=== PATIENT | male | born 1980 | race African-American/Black ===

== ENCOUNTER 2018-08-11 08:48 | Emergency (ER) | payer MEDICAID ==
[~2018-08-11] VITALS: Ht 180.3 cm; Wt 83.9 kg
[2018-08-11 08:52] VITALS: BP 100/57
--- NOTE | 2018-08-11 08:56 | NUR ---
ED Nurse Note: brought in by pt's from home due to lupus flare up x 3 days. Also c/o fever, 101.2F at bedside. Per pt, he took 500mg of tylenol at home around 0800. Butterfly-shaped rash seen across the cheeks and bridge of the nose. Denies CP nor SOB at this time.
[2018-08-11] MEDS ORDERED: FOLIC ACID1 MG ORAL (09:03)
[2018-08-11] MEDS ORDERED: CARVEDILOL6.25 MG ORAL (09:03)
[2018-08-11] MEDS ORDERED: NALOXONE H0.4 MG/12 IJ (09:03)
[2018-08-11] MEDS ORDERED: ZOFRAN4 M3 ORAL (09:03)
[2018-08-11] MEDS ORDERED: HYDROXYCHLOROQ200 M1 PO (09:03)
[2018-08-11] MEDS ORDERED: PREDNISONE10 MG ORAL (09:03)
[2018-08-11] MEDS ORDERED: ASPIR 8181 MG ORAL (09:03)
[2018-08-11] MEDS ORDERED: TYLENOL EXTRA500 MG ORAL (09:03)
[2018-08-11] MEDS ORDERED: MYCOPHENOLATE500 MG PO (09:03)
[2018-08-11] MEDS ORDERED: CLOPIDOGREL75 MG ORAL (09:03)
[2018-08-11] MEDS ORDERED: ATORVASTATIN CA40 MG ORAL (09:03)
[2018-08-11] MEDS ORDERED: Solu-MEDROL 125mg Inj IVP ONE (09:15)
[2018-08-11] MEDS ORDERED: HYDROcodone/Acetamin 10/325 tab ORAL ONE (09:15)
--- NOTE | 2018-08-11 09:18 | Emergency Room Report ---
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 seeing on August 22 Denies any chest pain denies any sore throat denies any cough Patient has diffuse body ache However denies any neck pain or photophobia he also feels that the rash around the facial area has become more pronounced Allergies: Coded Allergies: No Known Allergies (Unverified , 08/11/18) Patient History Past Medical History: see triage record Pertinent Family History: none Reviewed Nursing Documentation: PMH: Agreed; PSxH: Agreed Nursing Documentation-PMH Past Medical History: No History, Except For Hx Cardiac Problems: Yes - dental caries, DVT, lupus, PE, [place] Hx Diabetes: Yes - pre Hx Dialysis: No - renal failure Review of Systems All Other Systems: negative except mentioned in HPI Physical Exam Vital Signs Date Time Temp Pulse Resp B/P (MAP) Pulse Ox O2 Delivery O2 Flow Rate FiO2 08/11/18 08:50 101.1 91 20 100/57 100 Room Air Sp02 EP Interpretation: reviewed, normal General Appearance: well appearing, no apparent distress Head: normocephalic, atraumatic Eyes: bilateral eye PERRL, bilateral eye EOMI ENT: normal pharynx Neck: full range of motion, supple Respiratory: lungs clear Cardiovascular #1: regular rate, rhythm Gastrointestinal: non tender, soft Musculoskeletal: normal inspection Neurologic: alert, oriented x3, responsive Psychiatric: mood/affect normal Skin: other - Patient has a Mal or rash involving the nasal bridge and upper maxillary Lymphatic: no adenopathy Medical Decision Making Diagnostic Impression: Primary Impression: Fever 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1 % (11.6-14.8) Platelet Count 217 K/UL (150-450) Mean Platelet Volume 6.8 FL (6.5-10.1) Neutrophils (%) (Auto) 76.6 % (45.0-75.0) Lymphocytes (%) (Auto) 11.9 % (20.0-45.0) Monocytes (%) (Auto) 10.8 % (1.0-10.0) Eosinophils (%) (Auto) 0.4 % (0.0-3.0) Basophils (%) (Auto) 0.4 % (0.0-2.0) Urine Color Pale yellow Urine Appearance Clear Urine pH 8 (4.5-8.0) Urine Specific [place] 1.010 (1.005-1.035) Urine Protein Negative (NEGATIVE) Urine Glucose (UA) Negative (NEGATIVE) Urine Ketones Negative (NEGATIVE) Urine Blood Negative (NEGATIVE) Urine Nitrite Negative (NEGATIVE) Urine Bilirubin Negative (NEGATIVE) Urine Urobilinogen Normal MG/DL (0.0-1.0) Urine Leukocyte Esterase Negative (NEGATIVE) Sodium Level 138 MMOL/L (136-145) Potassium Level 3.8 MMOL/L (3.5-5.1) Chloride Level 102 MMOL/L (98-107) Carbon Dioxide Level 30 MMOL/L (21-32) Anion Gap 6 mmol/L (5-15) Blood Urea Nitrogen 11 mg/dL (7-18) Creatinine 1.3 MG/DL (0.55-1.30) Estimat Glomerular Filtration Rate > 60 mL/min (>60) Glucose Level 100 MG/DL (74-106) Calcium Level 8.4 MG/DL (8.5-10.1) Total Bilirubin 0.3 MG/DL (0.2-1.0) Aspartate Amino Transf (AST/SGOT) 16 U/L (15-37) Alanine Aminotransferase (ALT/SGPT) 20 U/L (12-78) Alkaline Phosphatase 71 U/L (46-116) Total Protein 6.6 G/DL (6.4-8.2) Albumin 3.1 G/DL (3.4-5.0) Globulin 3.5 g/dL Albumin/Globulin Ratio 0.9 (1.0-2.7) Rhythm Strip Diag. Results EP Interpretation: yes Rate: 66 Rhythm: NSR, no PVC's, no ectopy Last Vital Signs Date Time Temp Pulse Resp B/P (MAP) Pulse Ox O2 Delivery O2 Flow Rate FiO2 08/11/18 08:53 91 20 Room Air 08/11/18 08:52 101.2 100/57 100 Status: improved Disposition: HOME, SELF-CARE Condition: Improved Scripts Tramadol Hcl* (ULTRAM*) 50 Mg Tablet 50 MG ORAL Q6H PRN for For Pain, #10 TAB 0 Refills Prov: Susy Howard DO 08/11/18 Ibuprofen* (MOTRIN*) 600 Mg Tablet 600 MG ORAL Q8HR PRN for For Pain, #20 TAB 0 Refills Prov: Susy Howard DO 08/11/18 Methylprednisolone (Methylprednisolone*) 4MG Dspk 4 MG ORAL DIRECTED for 6 Days, #21 EA 0 Refills Day 1: Two tablets before breakfast, one after lunch, one after dinner, and two at bedtime. If started late in the day, take all six tablets at once or divide into two or three doses, unless otherwise directed by prescriber. Day 2: One tablet before breakfast, one after lunch, one after dinner, and two at bedtime Day 3: One tablet before breakfast, one after lunch, one after dinner, and one at bedtime Day 4: One tablet before breakfast, one after lunch, and one at bedtime Day 5: One tablet before breakfast and one at bedtime Day 6: One tablet before breakfast Prov: Susy Howard DO 08/11/18 Referrals: NON PHYSICIAN (PCP) Additional Instructions: Patient is provided with the discharge instructions notified to follow up with primary doctor in the next 2-3 days otherwise return to the er with any worsening symptoms. Please note that this report is being documented using DRAGON technology. This can lead to erroneous entry secondary to incorrect interpretation by the dictating instrument. Susy Howard DO Aug 11, 2018 09:18
--- NOTE | 2018-08-11 09:30 | NUR ---
ED Nurse Note: urine and blood sepcimens collected and sent down to the lab. All meds are given. No s/s of distress at this time.
[2018-08-11 09:35] LABS: BASOPHILS % (AUTO) 0.4 % (0.0-2.0); EOSINOPHILS % (AUTO) 0.4 % (0.0-3.0); HEMATOCRIT 31.8 % (42.0-52.0); HEMOGLOBIN 10.5 G/DL (14.2-18.0); LYMPHOCYTES % (AUTO) 11.9 % (20.0-45.0); MEAN CORPUSCULAR VOLUME 86 FL (80-99); MONOCYTES % (AUTO) 10.8 % (1.0-10.0); NEUTROPHILS % (AUTO) 76.6 % (45.0-75.0); PLATELET COUNT 217 K/UL (150-450); RED BLOOD COUNT 3.72 M/UL (4.70-6.10); RED CELL DISTRIBUTION WIDTH 13.1 % (11.6-14.8); WHITE BLOOD COUNT 5.4 K/UL (4.8-10.8)
[2018-08-11 10:00] LABS: ANION GAP 6 mmol/L (5-15); BLOOD UREA NITROGEN 11 mg/dL (7-18); CALCIUM 8.4 MG/DL (8.5-10.1); CARBON DIOXIDE 30 MMOL/L (21-32); CHLORIDE 102 MMOL/L (98-107); CREATININE 1.3 MG/DL (0.55-1.30); POTASSIUM 3.8 MMOL/L (3.5-5.1); SODIUM 138 MMOL/L (136-145)
[2018-08-11 10:04] LABS: ALANINE AMINOTRANSFERASE 20 U/L (12-78); ALBUMIN 3.1 G/DL (3.4-5.0); ALBUMIN/GLOBULIN RATIO 0.9 (1.0-2.7); ALKALINE PHOSPHATASE 71 U/L (46-116); ASPARTATE AMINO TRANSFERASE 16 U/L (15-37); BILIRUBIN,TOTAL 0.3 MG/DL (0.2-1.0)
[2018-08-11 10:16] LABS: APPEARANCE,URINE CLEAR; BILIRUBIN, URINE NEGATIVE (NEGATIVE); COLOR,URINE PALE YELLOW; GLUCOSE, URINE (UA) NEGATIVE (NEGATIVE); NITRITE,URINE NEGATIVE (NEGATIVE); UROBILINOGEN,URINE NORMAL MG/DL (0.0-1.0)
[2018-08-11 10:25] LABS: KETONES,URINE NEGATIVE (NEGATIVE); LEUKOCYTE ESTERASE ,URINE NEGATIVE (NEGATIVE); PH,URINE 8 (4.5-8.0); PROTEIN,URINE NEGATIVE (NEGATIVE)
[2018-08-11] MEDS ORDERED: IBUPROFEN600 MG ORAL (10:32)
[2018-08-11] MEDS ORDERED: MEDROL DOSEPAK4 MG ORAL (10:32)
[2018-08-11] MEDS ORDERED: TRAMADOL HCL50 MG ORAL (10:39)
[2018-08-11 10:44] VITALS: BP 108/49
[2018-08-11 10:45] VITALS: BP 108/49
--- NOTE | 2018-08-11 10:46 | NUR ---
ED Nurse Note: Pt cleared by health care Provider for discharge. DC instructions/prescription was given and explained to pt and verbalized understanding of teachings. All medical deviecs such as ID band and IV removed. Pt is AAO x4, ambulatory and left with all personal belongings.
== END 2018-08-11 10:47 | disposition home or self-care (01) ==
LOC: EMR 09:04
DX: R50.9 Fever, unspecified (principal); M32.9 Systemic lupus erythematosus, unspecified; N05.8 Unspecified nephritic syndrome with other morphologic changes; R73.03 Prediabetes; I25.2 Old myocardial infarction; Z86.711 Personal history of pulmonary embolism; Z86.718 Personal history of other venous thrombosis and embolism; R21 Rash and other nonspecific skin eruption; N19 Unspecified kidney failure
CPT/HCPCS: 36415; 80053; 81003; 85025; 93005; 96361; 96374; 99284; J2930

== ENCOUNTER 2018-09-18 23:05 | Emergency (ER) | payer MEDICAID ==
[~2018-09-18] VITALS: Ht 180.3 cm; Wt 81.6 kg
[~2018-09-18 23:05] MED LIST: ASPIR 8181 MG ORAL; ATORVASTATIN CA40 MG ORAL; CARVEDILOL6.25 MG ORAL; CLOPIDOGREL75 MG ORAL; FOLIC ACID1 MG ORAL; HYDROXYCHLOROQ200 M1 PO; IBUPROFEN600 MG ORAL; MEDROL DOSEPAK4 MG ORAL; MYCOPHENOLATE500 MG PO; NALOXONE H0.4 MG/12 IJ; PREDNISONE10 MG ORAL; TRAMADOL HCL50 MG ORAL; TYLENOL EXTRA500 MG ORAL; ZOFRAN4 M3 ORAL
[2018-09-18 23:21] VITALS: BP 128/76
--- NOTE | 2018-09-18 23:21 | NUR ---
ED Nurse Note: Pt has Lupus Hx, and current joints pain. Pt needs to refill his meds. Pt is AO x 4times, VSS, on room air no distress, Pt is on wheel chair. SUNITA seen Pt at bedside.
[2018-09-18] MEDS ORDERED: HYDROXYCHLOROQ200 M1 PO (23:38)
[2018-09-18] MEDS ORDERED: PREDNISONE2.5 MG ORAL (23:38)
[2018-09-18] MEDS ORDERED: COREG6.25 MG ORAL (23:38)
[2018-09-18] MEDS ORDERED: PLAVIX75 MG ORAL (23:38)
--- NOTE | 2018-09-18 23:40 | Emergency Room Report ---
History of Present Illness General Chief Complaint: Medication Refill Source: Patient Present Illness HPI Patient is a 37-year-old male who presented emergency department for medication refill. Patient reports having prior history of lupus. He states that he had run out of his medications and [facility]. Patient states that he had been having increased joint pain. He denies any acute complaints at this time. He states he has prior history of neuropathy and has been using a wheelchair. He reports having pain to multiple joints. He denies any fever. Allergies: Coded Allergies: No Known Allergies (Unverified , 08/11/18) Patient History Reviewed Nursing Documentation: PMH: Agreed; PSxH: Agreed Nursing Documentation-PMH Hx Cardiac Problems: Yes - dental caries, DVT, lupus, PE, [place] Hx Diabetes: Yes - pre Hx Dialysis: No - renal failure Review of Systems All Other Systems: negative except mentioned in HPI Physical Exam Vital Signs Date Time Temp Pulse Resp B/P (MAP) Pulse Ox O2 Delivery O2 Flow Rate FiO2 09/18/18 23:21 98.4 68 18 98 Room Air General Appearance: no apparent distress, alert, GCS 15, Chronically Ill Head: normocephalic, atraumatic Eyes: bilateral eye PERRL ENT: hearing grossly normal, normal voice Neck: full range of motion, supple Respiratory: lungs clear, no respiratory distress, speaking full sentences Cardiovascular #1: normal peripheral pulses, regular rate, rhythm Gastrointestinal: normal inspection Musculoskeletal: normal inspection Neurologic: normal inspection, alert, oriented x3, responsive, normal gait Psychiatric: mood/affect normal Skin: other - Rash. Medical Decision Making Diagnostic Impression: Primary Impression: Medication refill ER Course Patient presented for medication refill. Patient denies any current complaints. Patient was given refills of several of his medications. He was advised to follow-up with his primary care physician for further evaluation and further refills of his medications. He is advised to return if he had any other concerns. Last Vital Signs Date Time Temp Pulse Resp B/P (MAP) Pulse Ox O2 Delivery O2 Flow Rate FiO2 09/18/18 23:21 98.4 68 18 98 Room Air Status: improved Disposition: HOME, SELF-CARE Condition: Stable Scripts Clopidogrel Bisulfate* (PLAVIX*) 75 Mg Tablet 75 MG ORAL DAILY, #14 TAB Prov: William Santos MD 09/18/18 Prednisone* (PREDNISONE*) 2.5 Mg Tablet 5 MG ORAL DAILY, #14 TAB 0 Refills Prov: William Santos MD 09/18/18 Carvedilol (Coreg) 6.25 Mg Tablet 6.25 MG ORAL EVERY 12 HOURS, #30 TAB Prov: William Santos MD 09/18/18 Hydroxychloroquine Sulfate (HYDROXYCHLOROQUINE SULFATE) 200 Mg Tablet 200 MG PO DAILY for 14 Days, TAB Prov: William Santos MD 09/18/18 Patient Instructions: Medicine Refill at the Emergency Department William Santos MD September 18, 2018 23:40
--- NOTE | 2018-09-18 23:50 | NUR ---
ER DISCHARGE NOTE: Patient is cleared to be discharged per ERMD, pt is aox4, on room air, with stable vital signs. pt was given dc and prescription instructions, pt was able to verbalize understanding, pt id band and iv site removed without complications. pt is able to ambulate with steady gait. pt took all belongings.
[2018-09-19 03:42] VITALS: BP 128/76
== END 2018-09-19 03:47 | disposition home or self-care (01) ==
LOC: EMR 23:50
DX: R52 Pain, unspecified (principal); Z76.0 Encounter for issue of repeat prescription; R73.03 Prediabetes; I25.2 Old myocardial infarction; Z86.711 Personal history of pulmonary embolism; Z86.718 Personal history of other venous thrombosis and embolism; N19 Unspecified kidney failure; G62.9 Polyneuropathy, unspecified
CPT/HCPCS: 99282

== ENCOUNTER 2018-11-11 19:05 | Emergency (ER) | payer MEDICAID, OTHER ==
[~2018-11-11] VITALS: Ht 182.9 cm; Wt 77.1 kg
[~2018-11-11 19:05] MED LIST changes: +COREG6.25 MG ORAL; +PLAVIX75 MG ORAL; +PREDNISONE2.5 MG ORAL
--- NOTE | 2018-11-11 19:38 | Emergency Room Report ---
History of Present Illness General Chief Complaint: Medication Refill Source: Patient Present Illness HPI Male with history of lupus and DVT here requesting a medication refill. Patient reports that he was in intermediate and just got out of intermediate and has not had time to establish a new primary care provider. Patient last took his Plavix, hydroxychloroquine, and prednisone 4 days ago. Denies any calf tenderness, leg swelling or pain, chest pain, shortness of breath, palpitation. Patient was previously here a few months ago for medication refill of same diagnosis. Patient is also requesting multiple medication refill for his hyperlipidemia, hypertension, kidney transplant, and also complaining of a pruritic rash that his arms and legs when he was in intermediate. Reporting that pruritus is worse and at night denying any pain. Has fever and chills, exposure to new allergens. Allergies: Coded Allergies: No Known Allergies (Unverified , 08/11/18) Patient History Past Medical History: see triage record Past Surgical History: unable to obtain Pertinent Family History: none Immunizations: UTD Reviewed Nursing Documentation: PMH: Agreed; PSxH: Agreed Nursing Documentation-PMH Past Medical History: No History, Except For Hx Cardiac Problems: Yes - dental caries, DVT, lupus, PE, [place] Hx Diabetes: Yes - pre Hx Dialysis: No - renal failure Review of Systems All Other Systems: negative except mentioned in HPI Physical Exam Vital Signs Date Time Temp Pulse Resp B/P (MAP) Pulse Ox O2 Delivery O2 Flow Rate FiO2 11/11/18 19:08 98.4 90 14 110/62 (78) 98 Room Air Sp02 EP Interpretation: reviewed, normal General Appearance: normal inspection, well appearing, no apparent distress, alert, GCS 15 Head: normocephalic, atraumatic Eyes: bilateral eye normal inspection, bilateral eye PERRL ENT: normal ENT inspection, hearing grossly normal, normal pharynx, no angioedema, TMs + canals normal Neck: normal inspection, full range of motion, supple Respiratory: normal inspection, chest non-tender, lungs clear, normal breath sounds, no rhonchi, no respiratory distress, no retraction Cardiovascular #1: normal inspection, normal peripheral pulses, regular rate, rhythm, no edema, no gallop, no murmur Gastrointestinal: normal inspection, non tender, soft Genitourinary: no CVA tenderness Musculoskeletal: normal inspection, back normal, non-tender, no calf tenderness Neurologic: normal inspection, alert, oriented x3 Psychiatric: normal inspection, judgement/insight normal Skin: palpation normal, warm/dry, normal turgor Lymphatic: normal inspection, no adenopathy Medical Decision Making PA Attestation All diagnoses and treatment plans were reviewed and discussed with my supervising physician Dr. Richard Diagnostic Impression: Primary Impression: Encounter for medication refill Additional Impressions: Eczema Scabies ER Course Male with history of lupus and DVT here requesting a medication refill. Patient reports that he was in intermediate and just got out of intermediate and has not had time to establish a new primary care provider. Patient last took his Plavix, hydroxychloroquine, and prednisone 4 days ago. Denies any calf tenderness, leg swelling or pain, chest pain, shortness of breath, palpitation. Patient was previously here a few months ago for medication refill of same diagnosis. Patient is also requesting multiple medication refill for his hyperlipidemia, hypertension, kidney transplant, and also complaining of a pruritic rash that his arms and legs when he was in intermediate. Reporting that pruritus is worse and at night denying any pain. Has fever and chills, exposure to new allergens. Ddx considered but are not limited to: Eczema, scabies, lice, Vital signs: are WNL, pt. is afebrile H&PE are most consistent with: Eczema, scabies, medication refill ORDERS: Hydrocortisone cream, permethrin ED INTERVENTIONS: None required at this time. DISCHARGE: At this time pt. is stable for d/c to home. Will provide printed patient care instructions, and any necessary prescriptions. Care plan and follow up instructions have been discussed with the patient prior to discharge. I gave him a supply of the medications patient requested and highly advised patient to follow-up with a primary care provider for further refill of medication at this time patient does not have any calf tenderness and has normal physical exam despite not taking Plavix or aspirin for the past 4 days. I advised the patient return to the emergency room with chest pain, shortness of breath, leg swelling no calf tenderness. Last Vital Signs Date Time Temp Pulse Resp B/P (MAP) Pulse Ox O2 Delivery O2 Flow Rate FiO2 11/11/18 19:08 98.4 90 14 110/62 (78) 98 Room Air Disposition: HOME, SELF-CARE Condition: Stable Scripts Permethrin* (ELIMITE*) 60 Gm Cream..g. 1 APPLIC TOPIC ONCE, #60 GM 0 Refills Apply cream from head to toe; leave on for 8-14 hours before washing off with water; may reapply in 1 week if live mites appear. Prov: Ankit Finch 11/11/18 Hydrocortisone/Aloe Vera 1%* (HYDROCORTISONE-ALOE 1% CREAM*) Y Cr 1 APPLIC TOPIC Q6H PRN for Itching, #30 GM Prov: Ankit Finch 11/11/18 Folic Acid* (FOLIC ACID*) 1 Mg Tablet 1 MG ORAL DAILY for 30 Days, #30 TAB Prov: Ankit Finch 11/11/18 Carvedilol* (CARVEDILOL*) 6.25 Mg Tablet 6.25 MG ORAL EVERY 12 HOURS for 30 Days, #60 TAB Prov: Ankit Finch 11/11/18 Clopidogrel Bisulfate* (PLAVIX*) 75 Mg Tablet 75 MG ORAL DAILY for 30 Days, #30 TAB Prov: Ankit Finch [place] 11/11/18 Aspirin* (ASPIRIN*) 81 Mg Tab.chew 81 MG ORAL DAILY for 30 Days, #30 TAB Prov: Ankit Finch 11/11/18 Hydroxychloroquine Sulfate (HYDROXYCHLOROQUINE SULFATE) 200 Mg Tablet 200 MG PO DAILY for 30 Days, #30 TAB Prov: Ankit Finch [place] 11/11/18 Prednisone* (PREDNISONE*) 2.5 Mg Tablet 2.5 MG ORAL BID for 30 Days, #60 TAB 0 Refills Prov: Ankit Finch 11/11/18 Atorvastatin Calcium* (LIPITOR*) 80 Mg Tablet 80 MG ORAL BEDTIME for 30 Days, #30 TAB Prov: Ankit Finch 11/11/18 Mycophenolate Mofetil (MYCOPHENOLATE MOFETIL) 500 Mg Tablet 500 MG PO QID for 30 Days, #120 TAB Prov: Ankit Finch 11/11/18 Patient Instructions: Medicine Refill at the Emergency Department, Scabies, Pediatric Additional Instructions: See primary doctor, manufacturing chief engineer, and metalizer for further medication refill Ankit Finch Nov 11, 2018 19:38
[2018-11-11] MEDS ORDERED: PLAVIX75 MG ORAL (19:44)
[2018-11-11] MEDS ORDERED: CARVEDILOL6.25 MG ORAL (19:44)
[2018-11-11] MEDS ORDERED: FOLIC ACID1 MG ORAL (19:44)
[2018-11-11] MEDS ORDERED: HYDROXYCHLOROQ200 M1 PO (19:44)
[2018-11-11] MEDS ORDERED: ATORVASTATIN CA80 MG ORAL (19:44)
[2018-11-11] MEDS ORDERED: HYDROCORTISONE-30 GM TOPIC (19:44)
[2018-11-11] MEDS ORDERED: PREDNISONE2.5 MG ORAL (19:44)
[2018-11-11] MEDS ORDERED: ASPIRIN81 MG ORAL (19:44)
[2018-11-11] MEDS ORDERED: MYCOPHENOLATE500 MG PO (19:44)
[2018-11-11] MEDS ORDERED: PERMETHRIN60 GM TOPIC (19:44)
--- NOTE | 2018-11-11 19:59 | NUR ---
ED Nurse Note: RECIEVED PT ON [facility] AWAKE, ALERT AND ORIENTED X 4, PT HERE WITH C/O NEEDING MEDICATION REFILLS FOR CHRONIC MEDS FOR EXZEMA AND SCABIES, PT HAS NOTED RASH ON ENTIRE BODY INCLUDING FACE AND EXTREMITIES, PT DENIES ANY OTHER COMPLAINTS OR NEEDS, PT HAS BEEN SEEN BY MD AND BEING DISCHARGED TO HOME, GIVEN PRESCRIPTIONS X 8 WITH F/U INFO AND AFTER CARE INSTRUCTIONS, NAD NOTD DURING PT D/C TO HOME.
[2018-11-11 20:01] VITALS: BP 110/62
[2018-11-11 20:04] VITALS: BP 110/62
[2018-11-12] MEDS ORDERED: MYCOPHENOLATE500 MG PO (23:39)
[2018-11-12] MEDS ORDERED: HYDROCORTISONE-30 GM TOPIC (23:39)
[2018-11-12] MEDS ORDERED: FOLIC ACID1 MG ORAL (23:39)
[2018-11-12] MEDS ORDERED: ASPIRIN81 MG ORAL (23:39)
[2018-11-12] MEDS ORDERED: HYDROXYCHLOROQ200 M1 PO (23:39)
[2018-11-12] MEDS ORDERED: PREDNISONE2.5 MG ORAL (23:39)
[2018-11-12] MEDS ORDERED: PLAVIX75 MG ORAL (23:39)
[2018-11-12] MEDS ORDERED: CARVEDILOL6.25 MG ORAL (23:39)
[2018-11-12] MEDS ORDERED: ATORVASTATIN CA80 MG ORAL (23:39)
== END 2018-11-11 20:05 | disposition home or self-care (01) ==
LOC: EMR 20:05
DX: L30.9 Dermatitis, unspecified (principal); B86 Scabies; Z86.718 Personal history of other venous thrombosis and embolism; R73.03 Prediabetes; I25.2 Old myocardial infarction; Z86.711 Personal history of pulmonary embolism; E78.5 Hyperlipidemia, unspecified; Z94.0 Kidney transplant status
CPT/HCPCS: 99283

== ENCOUNTER 2018-11-12 20:59 | Emergency (ER) | payer OTHER ==
[~2018-11-12] VITALS: Ht 182.9 cm; Wt 77.1 kg
[~2018-11-12 20:59] MED LIST changes: +ASPIRIN81 MG ORAL; +ATORVASTATIN CA80 MG ORAL; +HYDROCORTISONE-30 GM TOPIC; +PERMETHRIN60 GM TOPIC
--- NOTE | 2018-11-12 21:20 | NUR ---
ED Nurse Note: Patient walked in to ER c/o chest discomphort, stated that he needs meds refill. AAO x4, VSS at this time, skin is dry war to touch. ERMD at bed side. EKG done, pt has sinus rythm.
[2018-11-12 21:24] VITALS: BP 115/64
[2018-11-12 21:52] LABS: HEMOGLOBIN 12.9 G/DL (14.2-18.0); MEAN CORPUSCULAR VOLUME 83 FL (80-99); PLATELET COUNT 139 K/UL (150-450); RED BLOOD COUNT 4.67 M/UL (4.70-6.10); RED CELL DISTRIBUTION WIDTH 12.2 % (11.6-14.8)
[2018-11-12 21:56] LABS: ANION GAP 6 mmol/L (5-15); BLOOD UREA NITROGEN 13 mg/dL (7-18); CARBON DIOXIDE 31 MMOL/L (21-32); CHLORIDE 104 MMOL/L (98-107); CREATININE 1.4 MG/DL (0.55-1.30); POTASSIUM 3.5 MMOL/L (3.5-5.1); SODIUM 141 MMOL/L (136-145)
[2018-11-12 22:12] LABS: ALANINE AMINOTRANSFERASE 62 U/L (12-78); ALBUMIN 4.3 G/DL (3.4-5.0); ALBUMIN/GLOBULIN RATIO 1.2 (1.0-2.7); ALKALINE PHOSPHATASE 94 U/L (46-116); ASPARTATE AMINO TRANSFERASE 38 U/L (15-37); BILIRUBIN,TOTAL 0.4 MG/DL (0.2-1.0); CKMB < 0.5 NG/ML (0.0-3.6); CREATINE KINASE 220 U/L (26-308)
[2018-11-12] MEDS ORDERED: traMADol 50mg tab ORAL ONE (23:15)
[2018-11-12] MEDS ORDERED: MYCOPHENOLATE500 MG PO (23:39)
[2018-11-12] MEDS ORDERED: CARVEDILOL6.25 MG ORAL (23:39)
[2018-11-12] MEDS ORDERED: FOLIC ACID1 MG ORAL (23:39)
[2018-11-12] MEDS ORDERED: PLAVIX75 MG ORAL (23:39)
[2018-11-12] MEDS ORDERED: HYDROXYCHLOROQ200 M1 PO (23:39)
[2018-11-12] MEDS ORDERED: HYDROCORTISONE-30 GM TOPIC (23:39)
[2018-11-12] MEDS ORDERED: ATORVASTATIN CA80 MG ORAL (23:39)
[2018-11-12] MEDS ORDERED: ASPIRIN81 MG ORAL (23:39)
[2018-11-12] MEDS ORDERED: PREDNISONE2.5 MG ORAL (23:39)
[2018-11-12 23:52] VITALS: BP 115/64
--- NOTE | 2018-11-13 00:49 | Emergency Room Report ---
History of Present Illness General Chief Complaint: Pain Source: Patient Present Illness HPI 37-year-old male presents ED for evaluation. States that he is here for generalized pain. History of lupus. States he was seen here yesterday for refill of his medications. Had several medications refilled as he had recently been released from snf. States that he was unable to fill his medications as they were not completed properly. Is here to get his medications filled. Also complaining of generalized pain. Pain to his general body as well as his chest. Dull, 8 out of 10, nonradiating. Denies shortness of breath. No other aggravating or relieving factors. Denies any other associated symptoms Allergies: Coded Allergies: No Known Allergies (Unverified , 08/11/18) Patient History Past Medical History: DM, DE, other - lupus Past Surgical History: none Pertinent Family History: none Social History: Denies: smoking, alcohol use, drug use Immunizations: UTD Reviewed Nursing Documentation: PMH: Agreed; PSxH: Agreed Nursing Documentation-PMH Past Medical History: No History, Except For Hx Cardiac Problems: Yes - dental caries, DVT, lupus, PE, DE Hx Diabetes: Yes - pre Hx Dialysis: No - renal failure Review of Systems All Other Systems: negative except mentioned in HPI Physical Exam Vital Signs Date Time Temp Pulse Resp B/P (MAP) Pulse Ox O2 Delivery O2 Flow Rate FiO2 11/12/18 21:04 98.1 70 14 115/64 (81) 99 Room Air Sp02 EP Interpretation: reviewed, normal General Appearance: no apparent distress, alert, GCS 15, non-toxic Head: normocephalic, atraumatic Eyes: bilateral eye normal inspection, bilateral eye PERRL ENT: hearing grossly normal, normal pharynx, no angioedema, normal voice Neck: full range of motion, supple/symm/no masses Respiratory: chest non-tender, lungs clear, normal breath sounds, speaking full sentences Cardiovascular #1: regular rate, rhythm, no edema Cardiovascular #2: 2+ carotid (R), 2+ carotid (L), 2+ radial (R), 2+ radial (L) , 2+ dorsalis pedis (R), 2+ dorsalis pedis (L) Gastrointestinal: normal bowel sounds, non tender, soft, non-distended, no guarding, no rebound Rectal: deferred Genitourinary: normal inspection, no CVA tenderness Musculoskeletal: back normal, gait/station normal, normal range of motion, non- tender Neurologic: alert, oriented x3, responsive, motor strength/tone normal, sensory intact, speech normal Psychiatric: judgement/insight normal, memory normal, mood/affect normal, no suicidal/homicidal ideation Reflexes: 3+ bicep (R), 3+ bicep (L), 3+ tricep (R), 3+ tricep (L), 3+ knee (R) , 3+ knee (L) Skin: other - malar rash Lymphatic: no adenopathy Medical Decision Making Diagnostic Impression: Primary Impression: Medication refill Additional Impression: 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 h/o lupus. Differential diagnoses include: Rib fracture, DE/unstable angina, contusion, muscle strain Clinical course Patient placed on stretcher. After initial history and physical I ordered labs , EKG, chest x-ray. labs reviewed- all electrolytes normal, troponins negative, no leukocytosis, hemoglobin/hematocrit stable EKG - NSR, no acute ischemic changes interpreted by me Chest x-ray-no cardiomegaly, no rib fracture, no pneumothorax, no acute process discussed findings with patient. I believe his pain is likely related to lupus and not cardiac. Patient due for new PMD. Will provide referrals. We will also provide him with refills of his medications that he could not fill yesterday I. I feel this is a highly complex case requiring extensive working including EKG/Rhythm strip, Xray/CT/US, Blood/urine lab work, repeat exams while in ED, and administration of strong opiates/narcotics for pain control, admission to hospital or close patient follow up. Diagnosis - medication refill, SLE Stable and discharged to home. Instructed to followup with PMD. Return to ED if symptoms recur or worsen Labs Test 11/12/18 21:35 White Blood Count 3.0 K/UL (4.8-10.8) Red Blood Count 4.67 M/UL (4.70-6.10) Hemoglobin 12.9 G/DL (14.2-18.0) Hematocrit 39.0 % (42.0-52.0) Mean Corpuscular Volume 83 FL (80-99) Mean Corpuscular Hemoglobin 27.7 PG (27.0-31.0) Mean Corpuscular Hemoglobin Concent 33.2 G/DL (32.0-36.0) Red Cell Distribution Width 12.2 % (11.6-14.8) Platelet Count 139 K/UL (150-450) Mean Platelet Volume 7.6 FL (6.5-10.1) Neutrophils (%) (Auto) % (45.0-75.0) Lymphocytes (%) (Auto) % (20.0-45.0) Monocytes (%) (Auto) % (1.0-10.0) Eosinophils (%) (Auto) % (0.0-3.0) Basophils (%) (Auto) % (0.0-2.0) Differential Total Cells Counted 100 Neutrophils % (Manual) 61 % (45-75) Lymphocytes % (Manual) 26 % (20-45) Monocytes % (Manual) 13 % (1-10) Eosinophils % (Manual) 0 % (0-3) Basophils % (Manual) 0 % (0-2) Band Neutrophils 0 % (0-8) Platelet Estimate Decreased Platelet Morphology Normal Red Blood Cell Morphology Normal Prothrombin Time 10.3 SEC (9.30-11.50) Prothromb Time International Ratio 1.0 (0.9-1.1) Activated Partial Thromboplast Time 26 SEC (23-33) Sodium Level 141 MMOL/L (136-145) Potassium Level 3.5 MMOL/L (3.5-5.1) Chloride Level 104 MMOL/L (98-107) Carbon Dioxide Level 31 MMOL/L (21-32) Anion Gap 6 mmol/L (5-15) Blood Urea Nitrogen 13 mg/dL (7-18) Creatinine 1.4 MG/DL (0.55-1.30) Estimat Glomerular Filtration Rate > 60 mL/min (>60) Glucose Level 109 MG/DL (74-106) Calcium Level 9.0 MG/DL (8.5-10.1) Total Bilirubin 0.4 MG/DL (0.2-1.0) Aspartate Amino Transf (AST/SGOT) 38 U/L (15-37) Alanine Aminotransferase (ALT/SGPT) 62 U/L (12-78) Alkaline Phosphatase 94 U/L (46-116) Total Creatine Kinase 220 U/L (26-308) Creatine Kinase MB < 0.5 NG/ML (0.0-3.6) Creatine Kinase MB Relative Index 0.2 Troponin I 0.005 ng/mL (0.000-0.056) Total Protein 7.9 G/DL (6.4-8.2) Albumin 4.3 G/DL (3.4-5.0) Globulin 3.6 g/dL Albumin/Globulin Ratio 1.2 (1.0-2.7) Urine Opiates Screen Negative (NEGATIVE) Urine Barbiturates Screen Negative (NEGATIVE) Phencyclidine (PCP) Screen Negative (NEGATIVE) Urine Amphetamines Screen Negative (NEGATIVE) Urine Benzodiazepines Screen Negative (NEGATIVE) Urine Cocaine Screen Negative (NEGATIVE) Urine Marijuana (THC) Screen Negative (NEGATIVE) EKG Diagnostic Results Rate: normal Rhythm: NSR ST Segments: no acute changes ASA given to the pt in ED: No Rhythm Strip Diag. Results EP Interpretation: yes Rhythm: NSR, no PVC's, no ectopy Chest X-Ray Diagnostic Results Chest X-Ray Diagnostic Results : Chest X-Ray Ordered: Yes # of Views/Limited/Complete: 1 View Indication: Chest Pain EP Interpretation: Yes Interpretation: no consolidation, no effusion, no pneumothorax, no acute cardiopulmonary disease Impression: No acute disease Electronically Signed by: Electronically signed by Chapincito Santiago MD Last Vital Signs Date Time Temp Pulse Resp B/P (MAP) Pulse Ox O2 Delivery O2 Flow Rate FiO2 11/12/18 23:52 98.1 14 115/64 99 Room Air 11/12/18 21:04 70 Status: improved Disposition: HOME, SELF-CARE Condition: Stable Scripts Clopidogrel Bisulfate* (PLAVIX*) 75 Mg Tablet 75 MG ORAL DAILY, #30 TAB Prov: Chapincito Santiago MD 11/12/18 Hydrocortisone/Aloe Vera 1%* (HYDROCORTISONE-ALOE 1% CREAM*) Y Cr 1 APPLIC TOPIC Q6H PRN for Itching, #30 GM Prov: Chapincito Santiago MD 11/12/18 Folic Acid* (FOLIC ACID*) 1 Mg Tablet 1 MG ORAL DAILY for 30 Days, #30 TAB Prov: Chapincito Santiago MD 11/12/18 Carvedilol* (CARVEDILOL*) 6.25 Mg Tablet 6.25 MG ORAL EVERY 12 HOURS for 30 Days, #60 TAB Prov: Chapincito Santiago MD 11/12/18 Aspirin* (ASPIRIN*) 81 Mg Tab.chew 81 MG ORAL DAILY for 30 Days, #30 TAB Prov: Chapincito Santiago MD 11/12/18 Hydroxychloroquine Sulfate (HYDROXYCHLOROQUINE SULFATE) 200 Mg Tablet 200 MG PO DAILY for 30 Days, #30 TAB Prov: Chapincito Santiago MD 11/12/18 Prednisone* (PREDNISONE*) 2.5 Mg Tablet 2.5 MG ORAL BID for 30 Days, #60 TAB 0 Refills Prov: Chapincito Santiago MD 11/12/18 Atorvastatin Calcium* (LIPITOR*) 80 Mg Tablet 80 MG ORAL BEDTIME for 30 Days, #30 TAB Prov: Chapincito Santiago MD 11/12/18 Mycophenolate Mofetil (MYCOPHENOLATE MOFETIL) 500 Mg Tablet 500 MG PO QID for 30 Days, #120 TAB Prov: Chapincito Santiago MD 11/12/18 Referrals: JUNIOR ELAM,REFERRING (PCP) Patient Instructions: Medicine Refill at the Emergency Department Chapincito Santiago MD Nov 13, 2018 00:49
--- NOTE | 2018-11-13 11:23 | Diagnostic Imaging Report ---
Indication: Chest pain Technique: One view of the chest Comparison: none Findings: Lungs and pleural spaces are clear. Heart size is normal Impression: No acute process
--- NOTE | 2018-11-13 18:49 | Cardiology Report ---
APPROVED REPORT EKG Measurement Heart [id number] Normal sinus rhythm Septal infarct, age undetermined Abnormal ECG
== END 2018-11-12 23:35 | disposition home or self-care (01) ==
LOC: EMR 21:23
DX: M32.9 Systemic lupus erythematosus, unspecified (principal); R52 Pain, unspecified; R07.9 Chest pain, unspecified; Z76.0 Encounter for issue of repeat prescription; E11.9 Type 2 diabetes mellitus without complications; I25.2 Old myocardial infarction; Z86.718 Personal history of other venous thrombosis and embolism; Z86.711 Personal history of pulmonary embolism; R73.03 Prediabetes
CPT/HCPCS: 36415; 71045; 80053; 80307; 82550; 82553; 84484; 85007; 85025; 85610; 85730; 93005; 99283

== ENCOUNTER 2019-07-23 00:30 | Emergency (ER) | payer OTHER ==
[~2019-07-23] VITALS: Ht 182.9 cm; Wt 79.4 kg
--- NOTE | 2019-07-23 00:35 | NUR ---
ED Nurse Note: PT WALKED IN C/O CP [id number]. PER PT, TOOK TYLENOL. PT DESCRIBES PAIN 8-9/10 DESCRIBED PRESSURE THAT RADIATES TO LEFT ARM INTERMITTENTLY. PT HX LUPUS AND TWO STENT PLACEMENT IN 2012 AND 2014. VSS, NAD. AAOX4, AMBULATORY.
--- NOTE | 2019-07-23 00:40 | NUR ---
ED Nurse Note: BLOOD DRAWN AND SENT TO LAB
[2019-07-23 00:56] VITALS: BP 98/72
--- NOTE | 2019-07-23 00:57 | Emergency Room Report ---
History of Present Illness General Chief Complaint: Chest Pain Source: Patient Present Illness HPI Disclaimer: Please note that this report is being documented using [employer] technology. This can lead to erroneous entry secondary to incorrect interpretation by the dictating instrument. HPI: 38-year-old male history of systemic lupus, CAD status post stenting, prediabetes, CKD presents for evaluation of chest discomfort and medication refill. He states he has been without his medications including Plavix, lisinopril, prednisone and mycophenolate for 2 days. [place] has not seen his doctor in some time. He typically will have some chest discomfort and pressure as well as intermittent shortness of breath when he runs out of prednisone. He is requesting refills of all his medications. Symptoms began 4 hours ago and describes a pressure over the chest and intermittent shortness of breath. He is not currently short of breath but does note some chest discomfort. He states that a typical presentation when he runs out of his prednisone. Denies any lower extremity swelling. Denies any recent fever, chills, cough, sore throat, nasal congestion , abdominal pain, nausea, vomiting, diarrhea. PMH: Lupus, CAD, hypertension, prediabetes, CKD PSH: Cardiac stents Allergies: Denies Social Hx: Denies tobacco use COVID-19 risk:Contact w/high r: No COVID-19 risk:Travel to affect: No Has patient experienced dobbs: Yes Coronavirus symptoms experienc: Fever (T>100.4F or >38C) Allergies: Coded Allergies: No Known Allergies (Unverified , 08/11/18) Nursing Documentation-PMH Hx Cardiac Problems: Yes - TN; STENTx 2 Hx Hypertension: Yes Hx Diabetes: No - prediabetes Hx Dialysis: No - renal failure Review of Systems All Other Systems: negative except mentioned in HPI Physical Exam Vital Signs Date Time Temp Pulse Resp B/P (MAP) Pulse Ox O2 Delivery O2 Flow Rate FiO2 07/23/19 00:31 100.2 80 16 98/72 (81) 98 Room Air General: Awake and alert, no acute distress HEENT: NC/AT. EOMI. Cardiovascular: RRR. S1 and S2 normal. No murmur appreciated Resp: Normal work of breathing. No cough, wheezing or crackles appreciated Abdomen: Abdomen is soft, nondistended. Nontender Skin: Intact. No abrasions, laceration or rash over the exposed skin MSK: Normal tone and bulk. Moving all extremities. No obvious deformity. Neuro: Awake and alert. Mentating appropriately. 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 Patient arrives borderline febrile but in no acute distress. He states his typical presentation when he runs out of prednisone. He has been without medication for 2 days. Differential includes was not limited to lupus flare, ACS, angina, musculoskeletal chest pain, bronchitis, viral syndrome, pneumonia. Overall, he is well-appearing. Will obtain EKG, chest x-ray, labs, treat the patient's pain and refill his medications. Laboratory Tests Test 07/23/19 00:40 White Blood Count 4.6 K/UL (4.8-10.8) L Red Blood Count 4.02 M/UL (4.70-6.10) L Hemoglobin 11.7 G/DL (14.2-18.0) L Hematocrit 32.7 % (42.0-52.0) L Mean Corpuscular Volume 81 FL (80-99) Mean Corpuscular Hemoglobin 29.2 PG (27.0-31.0) Mean Corpuscular Hemoglobin Concent 35.9 G/DL (32.0-36.0) Red Cell Distribution Width 12.4 % (11.6-14.8) Platelet Count 171 K/UL (150-450) Mean Platelet Volume 6.6 FL (6.5-10.1) Neutrophils (%) (Auto) 54.0 % (45.0-75.0) Lymphocytes (%) (Auto) 26.9 % (20.0-45.0) Monocytes (%) (Auto) 17.4 % (1.0-10.0) H Eosinophils (%) (Auto) 1.3 % (0.0-3.0) Basophils (%) (Auto) 0.5 % (0.0-2.0) Sodium Level 140 MMOL/L (136-145) Potassium Level 3.9 MMOL/L (3.5-5.1) Chloride Level 107 MMOL/L (98-107) Carbon Dioxide Level 27 MMOL/L (21-32) Anion Gap 6 mmol/L (5-15) Blood Urea Nitrogen 13 mg/dL (7-18) Creatinine 1.4 MG/DL (0.55-1.30) H Estimated Glomerular Filtration Rate > 60 mL/min (>60) Glucose Level 103 MG/DL (74-106) Calcium Level 8.2 MG/DL (8.5-10.1) L Total Bilirubin 0.3 MG/DL (0.2-1.0) Aspartate Amino Transferase (AST) 19 U/L (15-37) Alanine Aminotransferase (ALT) 31 U/L (12-78) Alkaline Phosphatase 72 U/L (46-116) Troponin I 0.019 ng/mL (0.000-0.056) Total Protein 6.9 G/DL (6.4-8.2) Albumin 3.2 G/DL (3.4-5.0) L Globulin 3.7 g/dL Albumin/Globulin Ratio 0.9 (1.0-2.7) L EKG Diagnostic Results EKG Time: 00:30 Rate: normal Rhythm: NSR ST Segments: no acute changes Other Impression Sinus rhythm, normal axis, normal intervals, no ST segment elevation. Nonspecific T wave changes Q waves in the precordial leads consistent with prior infarct. Unchanged compared to EKG on 08/11/2018. ASA given to the pt in ED: Yes Rhythm Strip Diag. Results Rhythm Strip Time: 00:30 Reevaluation Time: 02:54 Last Vital Signs Date Time Temp Pulse Resp B/P (MAP) Pulse Ox O2 Delivery O2 Flow Rate FiO2 20 00:31 100.2 80 16 98/72 (81) 98 Room Air Reevaluation Impression EKG does not show evidence of acute ischemia and is unchanged from prior visits. Chest x-ray unremarkable. Labs including cardiac enzymes are negative x2. Patient states this is consistent with his pain from lupus after a going off of his medications, particularly prednisone. He was given IV steroids. We will refill his medications. Believe he is safe for outpatient follow-up. Will continue isolation according to CDC guidelines given his high risk. Discussed reasons to return to the emergency department need for immediate follow-up with his PMD. He understands and agrees with treatment and will be discharged home. Disposition: HOME, SELF-CARE Condition: Stable Scripts Hydroxychloroquine Sulfate (HYDROXYCHLOROQUINE SULFATE) 200 Mg Tablet 200 MG PO DAILY for 30 Days, #30 TAB Prov: Bobby Cedeno MD 07/23/19 Prednisone* (PREDNISONE*) 10 Mg Tablet 10 MG ORAL DAILY, #10 TAB 0 Refills Prov: Bobby Cedeno MD 07/23/19 Mycophenolate Mofetil (MYCOPHENOLATE MOFETIL) 500 Mg Tablet 2000 MG PO BID for 30 Days, #120 TAB Prov: Bobby Cedeno MD 07/23/19 Folic Acid* (FOLIC ACID*) 1 Mg Tablet 1 MG ORAL DAILY for 30 Days, #30 TAB Prov: Bobby Cedeno MD 07/23/19 Clopidogrel* (CLOPIDOGREL*) 75 Mg Tablet 75 MG ORAL DAILY for 30 Days, #30 TAB Prov: Bobby Cedeno MD 07/23/19 Carvedilol* (CARVEDILOL*) 6.25 Mg Tablet 6.25 MG ORAL EVERY 12 HOURS for 30 Days, #30 TAB Prov: Bobby Cedeno MD 07/23/19 Atorvastatin Calcium* (ATORVASTATIN CALCIUM*) 40 Mg Tablet 80 MG ORAL BEDTIME for 30 Days, #30 TAB Prov: Bobby Cedeno MD 07/23/19 Aspirin* (ASPIR 81*) 81 Mg Tablet.dr 81 MG ORAL DAILY for 30 Days, #30 TAB Prov: Bobby Cedeno MD 07/23/19 Referrals: JUNIOR ELAM,REFERRING (PCP) Bobby Cedeno MD Jul 23, 2019 00:57
[2019-07-23] MEDS ORDERED: Aspirin Baby 81mg ORAL ONE (01:00)
[2019-07-23] MEDS ORDERED: Morphine Sulfate 4mg/ml Inj (IV USE ONLY) IVP ONE ×2 (01:00→01:45)
[2019-07-23 01:01] LABS: BASOPHILS % (AUTO) 0.5 % (0.0-2.0); EOSINOPHILS % (AUTO) 1.3 % (0.0-3.0); HEMATOCRIT 32.7 % (42.0-52.0); HEMOGLOBIN 11.7 G/DL (14.2-18.0); LYMPHOCYTES % (AUTO) 26.9 % (20.0-45.0); MEAN CORPUSCULAR VOLUME 81 FL (80-99); MONOCYTES % (AUTO) 17.4 % (1.0-10.0); PLATELET COUNT 171 K/UL (150-450); RED BLOOD COUNT 4.02 M/UL (4.70-6.10); RED CELL DISTRIBUTION WIDTH 12.4 % (11.6-14.8); WHITE BLOOD COUNT 4.6 K/UL (4.8-10.8)
[2019-07-23 01:03] LABS: ANION GAP 6 mmol/L (5-15); BLOOD UREA NITROGEN 13 mg/dL (7-18); CALCIUM 8.2 MG/DL (8.5-10.1); CARBON DIOXIDE 27 MMOL/L (21-32); CHLORIDE 107 MMOL/L (98-107); CREATININE 1.4 MG/DL (0.55-1.30); POTASSIUM 3.9 MMOL/L (3.5-5.1); SODIUM 140 MMOL/L (136-145)
[2019-07-23 01:10] LABS: ALANINE AMINOTRANSFERASE 31 U/L (12-78); ALBUMIN 3.2 G/DL (3.4-5.0); ALBUMIN/GLOBULIN RATIO 0.9 (1.0-2.7); ALKALINE PHOSPHATASE 72 U/L (46-116); ASPARTATE AMINO TRANSFERASE 19 U/L (15-37); BILIRUBIN,TOTAL 0.3 MG/DL (0.2-1.0)
--- NOTE | 2019-07-23 01:15 | NUR ---
ED Nurse Note: XR AT BEDSIDE
[2019-07-23] MEDS ORDERED: HYDROXYCHLOROQ200 M1 PO (01:29)
[2019-07-23] MEDS ORDERED: FOLIC ACID1 MG ORAL (01:29)
[2019-07-23] MEDS ORDERED: MYCOPHENOLATE500 MG PO (01:29)
[2019-07-23] MEDS ORDERED: CARVEDILOL6.25 MG ORAL (01:29)
[2019-07-23] MEDS ORDERED: ASPIR 8181 MG ORAL (01:29)
[2019-07-23] MEDS ORDERED: PREDNISONE10 MG ORAL (01:29)
[2019-07-23] MEDS ORDERED: CLOPIDOGREL75 MG ORAL (01:29)
[2019-07-23] MEDS ORDERED: ATORVASTATIN CA40 MG ORAL (01:29)
[2019-07-23 03:02] VITALS: BP 98/72
[2019-07-23 03:05] VITALS: BP 98/72
--- NOTE | 2019-07-23 12:01 | Diagnostic Imaging Report ---
Indication: Dyspnea Comparison: 11/12/2018 A single view chest radiograph was obtained. Findings: Cardiomediastinal appearance is within normal limits for age. The lungs are clear. Pulmonary vascularity is appropriate. The diaphragmatic contour is smooth and costophrenic angles are sharp. No pleural effusions are identified. The bones are unremarkable. Impression: No acute findings
== END 2019-07-23 03:05 | disposition home or self-care (01) ==
LOC: EMR 00:51
DX: R07.9 Chest pain, unspecified (principal); Z76.0 Encounter for issue of repeat prescription; M32.9 Systemic lupus erythematosus, unspecified; N05.8 Unspecified nephritic syndrome with other morphologic changes; I12.9 Hypertensive chronic kidney disease with stage 1 through stage 4 chronic kidney disease, or unspecified chronic kidney disease; N18.9 Chronic kidney disease, unspecified; I25.2 Old myocardial infarction; Z95.5 Presence of coronary angioplasty implant and graft
CPT/HCPCS: 36415; 71045; 80053; 84484; 85025; 93005; 96374; 96376; J2270; J7512; Z7502; 99284

== ENCOUNTER → 2019-08-25 | Emergency (ER) | payer SELFPAY ==
[~2019-08-25] VITALS: Ht 180.3 cm; Wt 72.6 kg
[~2019-08-25] MED LIST changes: +MEDROL4 MG ORAL
--- NOTE | 2019-08-25 07:42 | NUR ---
ED Nurse Note: pt ambulated to ED d/t medication refill for lupus. Pt is AOx4, VSS, on RA, afebrile on triage, NAD noted. Placed on RME
[2019-08-25 08:00] VITALS: BP 120/69
--- NOTE | 2019-08-25 08:05 | Emergency Room Report ---
History of Present Illness General Chief Complaint: Medication Refill Source: Patient Present Illness HPI Patient presents with reports of some minimal upper chest discomfort Denies any shortness of breath reports that he has a history of lupus and does get this similar discomfort Intermittently patient has just run out of his medications Also requesting refill Denies any pleurisy denies any fevers or chills denies any vomiting reports that he has been having difficulty Contacting his primary physician And has been on the medications for multiple years Allergies: Coded Allergies: No Known Allergies (Unverified , 08/11/18) COVID-19 Screening Contact w/high risk pt: No Recent Travel to affected area: No Experienced COVID-19 symptoms?: No COVID-19 symptoms experienced: Fever (T>100.4F or >38C) Patient History Past Medical History: see triage record Reviewed Nursing Documentation: PMH: Agreed; PSxH: Agreed Nursing Documentation-PMH Hx Hypertension: Yes Hx Diabetes: No - prediabetes Hx Dialysis: No - renal failure Review of Systems All Other Systems: negative except mentioned in HPI Physical Exam Vital Signs Date Time Temp Pulse Resp B/P (MAP) Pulse Ox O2 Delivery O2 Flow Rate FiO2 08/25/19 07:42 98.2 86 20 120/69 (86) 97 Room Air Sp02 EP Interpretation: reviewed, normal General Appearance: well appearing, no apparent distress Head: normocephalic, atraumatic Eyes: bilateral eye PERRL, bilateral eye EOMI ENT: hearing grossly normal, normal pharynx, TMs + canals normal, uvula midline Neck: full range of motion, supple, no meningismus, no bony tend Respiratory: lungs clear, normal breath sounds, no rhonchi, no respiratory distress, no retraction, no accessory muscle use Cardiovascular #1: normal peripheral pulses, regular rate, rhythm, no edema, no gallop, no JVD, no murmur Gastrointestinal: normal bowel sounds, non tender, soft, no mass, no organomegaly, non-distended, no guarding, no hernia, no pulsatile mass, no rebound Genitourinary: no CVA tenderness Musculoskeletal: normal inspection Neurologic: motor strength/tone normal, roping tender III-XII nml as tested, oriented x3 , sensory intact, responsive Psychiatric: mood/affect normal Skin: no rash Lymphatic: normal inspection, no adenopathy Medical Decision Making Diagnostic Impression: Primary Impression: lupus flare ER Course Multiple differentials and consideration including but not limited to cardiac, cardiopulmonary, lupus flare Patient is not requesting any medications here reports that he feels otherwise well He did not want to be off his medications however He understands the importance of follow-up with primary physician And the need for the primary physician closely the medication listed has multiple significant risk factors and side effects And these require appropriate evaluation and follow-up Last Vital Signs Date Time Temp Pulse Resp B/P (MAP) Pulse Ox O2 Delivery O2 Flow Rate FiO2 08/25/19 07:42 98.2 86 20 120/69 (86) 97 Room Air Status: unchanged Disposition: HOME, SELF-CARE Condition: Stable Scripts Folic Acid* (FOLIC ACID*) 1 Mg Tablet 1 MG ORAL DAILY for 30 Days, TAB Prov: Susy Howard DO 08/25/19 Methylprednisolone* (MEDROL*) 4 Mg Tablet 4 MG ORAL DAILY, #10 TAB 0 Refills Prov: Susy Howard DO 08/25/19 Mycophenolate Mofetil (MYCOPHENOLATE MOFETIL) 500 Mg Tablet 1000 MG PO BID for 30 Days, TAB Prov: Susy Howard DO 08/25/19 Hydroxychloroquine Sulfate (HYDROXYCHLOROQUINE SULFATE) 200 Mg Tablet 200 MG PO DAILY for 30 Days, TAB Prov: Susy Howard DO 08/25/19 Clopidogrel* (CLOPIDOGREL*) 75 Mg Tablet 75 MG ORAL DAILY for 30 Days, #30 TAB Prov: Susy Howard DO 08/25/19 Carvedilol* (CARVEDILOL*) 6.25 Mg Tablet 6.25 MG ORAL EVERY 12 HOURS for 30 Days, TAB Prov: Susy Howard DO 08/25/19 Referrals: [facility] Patient Instructions: Systemic Lupus Erythematosus, Adult Additional Instructions: Patient is provided with the discharge instructions notified to follow up with primary doctor in the next 2-3 days otherwise return to the er with any worsening symptoms. Please note that this report is being documented using [employer] technology. This can lead to erroneous entry secondary to incorrect interpretation by the dictating instrument. Susy Howard DO Aug 25, 2019 08:05
[2019-08-25 08:08] VITALS: BP 122/70
--- NOTE | 2019-08-25 08:08 | NUR ---
ER DISCHARGE NOTE: Pt is cleared to be discharged per ERMD, pt is aox4, on room air, with stable vital signs. pt was given dc and prescription instructions, pt was able to verbalize understanding, pt id band removed. pt is able to ambulate with steady gait. pt took all belongings.
== END | disposition home or self-care (01) ==
LOC: EDBD 08:09 → EMR 08:09
DX: M32.9 Systemic lupus erythematosus, unspecified (principal); I10 Essential (primary) hypertension; R73.03 Prediabetes
CPT/HCPCS: 99282

== ENCOUNTER 2019-09-05 03:39 | Emergency (ER) | payer OTHER ==
[~2019-09-05] VITALS: Ht 180.3 cm; Wt 83.9 kg
[2019-09-05 03:48] VITALS: BP 112/72
[2019-09-05] MEDS ORDERED: MEDROL DOSEPAK4 MG ORAL (04:08)
--- NOTE | 2019-09-05 04:08 | Emergency Room Report ---
History of Present Illness General Chief Complaint: Medication Refill Source: Patient Present Illness HPI This is a 38-year-old male with history of lupus. He presents with complaint of a lupus exacerbation. He said he was here couple weeks ago and was prescribed Solu-Medrol back in the wrong dose. He normally get a Medrol Dosepak. He said he has been out of his prednisone and having joint pain. Pain is 8 out of 10. Nothing made it better. Nothing made it worse. Denies any fever chills but denies any nausea vomiting or diarrhea. No cough or congestion. No fever. Allergies: Coded Allergies: No Known Allergies (Unverified , 08/11/18) COVID-19 Screening Contact w/high risk pt: No Recent Travel to affected area: No Experienced COVID-19 symptoms?: No COVID-19 symptoms experienced: Fever (T>100.4F or >38C) Patient History Past Medical History: see triage record, old chart reviewed, [place], CAD Past Surgical History: other Pertinent Family History: none Social History: Denies: smoking Immunizations: other Reviewed Nursing Documentation: PMH: Agreed; PSxH: Agreed Nursing Documentation-PMH Hx Cardiac Problems: Yes - stents, [place]; Hx Hypertension: Yes Hx Diabetes: No - prediabetes Hx Dialysis: No - CKD Hx Neurological Problems: Yes - Lupus Review of Systems Eye: Denies: eye pain, blurred vision ENT: Denies: ear pain, nose congestion, throat swelling Respiratory: Denies: cough, shortness of breath Cardiovascular: Denies: chest pain, palpitations Gastrointestinal: Denies: abdominal pain, diarrhea, nausea, vomiting Musculoskeletal: Reports: joint pain; Denies: back pain Skin: Denies: rash Neurological: Denies: headache, numbness Endocrine: Denies: increased thirst, increased urine Hematologic/Lymphatic: Denies: easy bruising All Other Systems: negative except mentioned in HPI Physical Exam Vital Signs Date Time Temp Pulse Resp B/P (MAP) Pulse Ox O2 Delivery O2 Flow Rate FiO2 09/05/19 03:42 98.1 74 16 116/77 (90) 96 Room Air Vitals normal Sp02 EP Interpretation: reviewed, normal General Appearance: well appearing, no apparent distress, alert Head: normocephalic, atraumatic Eyes: bilateral eye PERRL, bilateral eye EOMI ENT: hearing grossly normal, normal pharynx Neck: full range of motion, supple, no meningismus Respiratory: chest non-tender, lungs clear, normal breath sounds Cardiovascular #1: regular rate, rhythm, no murmur Gastrointestinal: normal bowel sounds, non tender, no mass, no organomegaly, no bruit, non-distended Musculoskeletal: back normal, normal range of motion, gait/station normal Psychiatric: mood/affect normal Medical Decision Making Diagnostic Impression: Primary Impression: Medication refill ER Course Patient here for refill on his lupus steroid medication. Patient otherwise stable. No evidence of infection. Will discharge home. Last Vital Signs Date Time Temp Pulse Resp B/P (MAP) Pulse Ox O2 Delivery O2 Flow Rate FiO2 09/05/19 03:48 98.1 72 17 112/72 97 Room Air Status: unchanged Disposition: HOME, SELF-CARE Condition: Stable Scripts Methylprednisolone (Methylprednisolone*) 4MG Dspk 4 MG ORAL DIRECTED for 6 Days, #21 EA 0 Refills Day 1: Two tablets before breakfast, one after lunch, one after dinner, and two at bedtime. If started late in the day, take all six tablets at once or divide into two or three doses, unless otherwise directed by prescriber. Day 2: One tablet before breakfast, one after lunch, one after dinner, and two at bedtime Day 3: One tablet before breakfast, one after lunch, one after dinner, and one at bedtime Day 4: One tablet before breakfast, one after lunch, and one at bedtime Day 5: One tablet before breakfast and one at bedtime Day 6: One tablet before breakfast Prov: Antonio Gu MD 09/05/19 Referrals: JUNIOR ELAM,REFERRING (PCP) Patient Instructions: Medicine Refill at the Emergency Department Additional Instructions: Follow-up with your primary care doctor within a week for refills on your medication. Return if symptoms worsen. Antonio Gu MD September 05, 2019 04:08
[2019-09-05 04:15] VITALS: BP 114/74
== END 2019-09-05 04:15 | disposition home or self-care (01) ==
LOC: EMR 03:54
DX: Z76.0 Encounter for issue of repeat prescription (principal); M32.9 Systemic lupus erythematosus, unspecified; I12.9 Hypertensive chronic kidney disease with stage 1 through stage 4 chronic kidney disease, or unspecified chronic kidney disease; N18.9 Chronic kidney disease, unspecified; I25.10 Atherosclerotic heart disease of native coronary artery without angina pectoris; I25.2 Old myocardial infarction
CPT/HCPCS: J7512; Z7502; 99282

== ENCOUNTER 2019-09-15 08:39 | Emergency (ER) | payer OTHER ==
[~2019-09-15] VITALS: Ht 175.3 cm; Wt 77.1 kg
--- NOTE | 2019-09-15 08:53 | NUR ---
ED Nurse Note: Pt ambulated to ed from home stating that he needs a refill of prednisone due to his lupus. pt shows no acute signs of distress. pt shows no signs or symptoms of respiratory distress. denies cough or flulike symptoms.
[2019-09-15 09:03] VITALS: BP 128/78
--- NOTE | 2019-09-15 09:03 | Emergency Room Report ---
History of Present Illness General Chief Complaint: Medication Refill Source: Patient Present Illness HPI 38-year-old male history of lupus presents for chronic steroid refill, patient states he takes 10 mg daily patient and treatment Allergies: Coded Allergies: No Known Allergies (Unverified , 08/11/18) COVID-19 Screening Contact w/high risk pt: No Recent Travel to affected area: No Experienced COVID-19 symptoms?: No COVID-19 symptoms experienced: Fever (T>100.4F or >38C) Patient History Past Medical History: see triage record Reviewed Nursing Documentation: PMH: Agreed; PSxH: Agreed Nursing Documentation-PMH Hx Cardiac Problems: Yes - stents, [place]; Hx Hypertension: Yes Hx Diabetes: No - prediabetes Hx Dialysis: No - CKD Hx Neurological Problems: Yes - Lupus Review of Systems All Other Systems: negative except mentioned in HPI Physical Exam Vital Signs Date Time Temp Pulse Resp B/P (MAP) Pulse Ox O2 Delivery O2 Flow Rate FiO2 09/15/19 09:00 97.9 72 16 128/78 (95) 99 Room Air General Appearance: well appearing, no apparent distress Head: normocephalic, atraumatic ENT: hearing grossly normal, normal voice Neck: full range of motion, supple Respiratory: no respiratory distress, speaking full sentences Neurologic: alert, normal gait Psychiatric: mood/affect normal Skin: no rash Medical Decision Making Diagnostic Impression: Primary Impression: Medication refill ER Course 38-year-old male presents for medication refill will provide patient with medications, cures report was ran for his chronic pain disposition home with return precautions follow-up with PCP Patient reports he is going to see his bridge tender tomorrow Disposition: HOME, SELF-CARE Condition: Stable Scripts Prednisone* (PREDNISONE*) 10 Mg Tablet 10 MG ORAL DAILY, #30 TAB 0 Refills Prov: Peewee Horton MD 09/15/19 Hydrocodone Bit/Acetaminophen 5-325* (NORCO 5-325 TABLET*) 1 Each Tablet 1 TAB ORAL Q6H PRN for FOR PAIN, #12 TAB 0 Refills Prov: Peewee Horton MD 09/15/19 [facility] Patient Instructions: Medicine Refill at the Emergency Department Additional Instructions: The patient was provided with discharge instructions, notified to follow-up with a primary care doctor and or specialist in the next 24-48 hours, and to return to the ED if they have worsening of their symptoms. Please note that this report is being documented using [employer] technology. This can lead to erroneous entry secondary to incorrect interpretation by the dictating instrument. Peewee Horton MD September 15, 2019 09:03
[2019-09-15] MEDS ORDERED: ATORVASTATIN CA80 MG ORAL (09:06)
[2019-09-15] MEDS ORDERED: PREDNISONE10 MG ORAL (09:09)
[2019-09-15] MEDS ORDERED: NORCO 5-325 TA1 EAC1 ORAL (09:09)
--- NOTE | 2019-09-15 09:11 | NUR ---
ER DISCHARGE NOTE: Patient is cleared to be discharged per ERMD, pt is aox4, on room air, with stable vital signs. pt was given dc and prescription instructions, pt was able to verbalize understanding, pt id band removed. pt is able to ambulate with steady gait. pt took all belongings.
== END 2019-09-15 09:20 | disposition home or self-care (01) ==
LOC: EMR 09:15
DX: M32.9 Systemic lupus erythematosus, unspecified (principal); Z76.0 Encounter for issue of repeat prescription; I25.2 Old myocardial infarction; Z95.5 Presence of coronary angioplasty implant and graft; R73.03 Prediabetes; I12.9 Hypertensive chronic kidney disease with stage 1 through stage 4 chronic kidney disease, or unspecified chronic kidney disease; N18.9 Chronic kidney disease, unspecified
CPT/HCPCS: 99282

== ENCOUNTER 2019-09-27 03:47 | Emergency (ER) | payer OTHER ==
[~2019-09-27] VITALS: Ht 182.9 cm; Wt 83.5 kg
[~2019-09-27 03:47] MED LIST changes: +NORCO 5-325 TA1 EAC1 ORAL
[2019-09-27 04:10] VITALS: BP 110/77
--- NOTE | 2019-09-27 04:10 | NUR ---
ED Nurse Note: Pt walked into ED for medication refill of plavix and hydrochloroquine. Pt has no other complaints, denies pain. Pt is aaox4, no cardiac or respiratory distress noted.
[2019-09-27] MEDS ORDERED: PLAVIX75 MG ORAL (04:23)
[2019-09-27] MEDS ORDERED: HYDROXYCHLOROQ200 M1 PO (04:23)
--- NOTE | 2019-09-27 04:23 | Emergency Room Report ---
History of Present Illness General Chief Complaint: Medication Refill Source: Patient Present Illness HPI This a 38-year-old male with a history of lupus. Patient said he is out of his Plavix and Plaquenil. This will be the third visit in this month for refills of medication. He said he moved here from [facility]. He has not establish a doctor yet. He complained of joint pain and lupus exacerbation. No fever chills no nausea no vomiting. Denies any other complaint. Allergies: Coded Allergies: No Known Allergies (Unverified , 08/11/18) COVID-19 Screening Contact w/high risk pt: No Recent Travel to affected area: No Experienced COVID-19 symptoms?: No COVID-19 symptoms experienced: Fever (T>100.4F or >38C) COVID-19 Testing performed MOLDED RUBBER GOODS CUTTER: No Patient History Past Medical History: see triage record, old chart reviewed Past Surgical History: none Pertinent Family History: none Social History: Denies: smoking Immunizations: other Reviewed Nursing Documentation: PMH: Agreed; PSxH: Agreed Nursing Documentation-PMH Hx Cardiac Problems: Yes - hx of [place], kidney failure, rheumatoid arthritis, lupus Hx Hypertension: Yes Hx Pacemaker: No Hx Asthma: No Hx COPD: No Hx Diabetes: Yes - prediabetic Hx Cancer: No Hx Gastrointestinal Problems: No Hx Dialysis: No History Of Psychiatric Problem: No Hx Neurological Problems: No Hx Cerebrovascular Accident: No Hx Seizures: No Review of Systems Eye: Denies: eye pain, blurred vision ENT: Denies: ear pain, nose congestion, throat swelling Respiratory: Denies: cough, shortness of breath Cardiovascular: Denies: chest pain, palpitations Gastrointestinal: Denies: abdominal pain, diarrhea, nausea, vomiting Musculoskeletal: Denies: back pain, joint pain Skin: Denies: rash Neurological: Denies: headache, numbness Endocrine: Denies: increased thirst, increased urine Hematologic/Lymphatic: Denies: easy bruising All Other Systems: negative except mentioned in HPI Physical Exam Vital Signs Date Time Temp Pulse Resp B/P (MAP) Pulse Ox O2 Delivery O2 Flow Rate FiO2 09/27/19 04:02 97.9 60 22 110/77 (88) 99 Room Air Vitals normal Sp02 EP Interpretation: reviewed, normal General Appearance: well appearing, no apparent distress, alert Head: normocephalic, atraumatic Eyes: bilateral eye PERRL, bilateral eye EOMI ENT: hearing grossly normal, normal pharynx Neck: full range of motion, supple, no meningismus Respiratory: chest non-tender, lungs clear, normal breath sounds Cardiovascular #1: regular rate, rhythm, no murmur Gastrointestinal: normal bowel sounds, non tender, no mass, no organomegaly, no bruit, non-distended Musculoskeletal: back normal, normal range of motion, gait/station normal Psychiatric: mood/affect normal Medical Decision Making Diagnostic Impression: Primary Impression: Encounter for medication refill ER Course Patient here for refills on his to medication. No other complication. No other complaints. Last Vital Signs Date Time Temp Pulse Resp B/P (MAP) Pulse Ox O2 Delivery O2 Flow Rate FiO2 09/27/19 04:02 97.9 60 22 110/77 (88) 99 Room Air Status: unchanged Disposition: HOME, SELF-CARE Condition: Stable Scripts Hydroxychloroquine Sulfate (HYDROXYCHLOROQUINE SULFATE) 200 Mg Tablet 200 MG PO DAILY, #30 TAB Prov: Antonio Gu MD 09/27/19 Clopidogrel Bisulfate* (PLAVIX*) 75 Mg Tablet 75 MG ORAL DAILY, #30 TAB Prov: Antonio Gu MD 09/27/19 Patient Instructions: Medicine Refill at the Emergency Department Additional Instructions: Establish with so you can get your refills of your medication and routine follow-up. Call your insurance to see who is your assigned doctor. Return if symptoms worsen. Antonio Gu MD September 27, 2019 04:23
[2019-09-27 04:25] VITALS: BP 110/77
== END 2019-09-27 04:25 | disposition home or self-care (01) ==
LOC: EMR 04:21
DX: Z76.0 Encounter for issue of repeat prescription (principal); M32.9 Systemic lupus erythematosus, unspecified; I10 Essential (primary) hypertension; I25.2 Old myocardial infarction; M06.9 Rheumatoid arthritis, unspecified; R73.03 Prediabetes; R50.9 Fever, unspecified
CPT/HCPCS: 99282

== ENCOUNTER 2019-10-17 20:39 | Emergency (ER) | payer OTHER ==
[~2019-10-17] VITALS: Ht 180.3 cm; Wt 75.3 kg
[2019-10-17 20:51] VITALS: BP 103/66
[2019-10-17] MEDS ORDERED: Ketorolac 30mg Inj IV ONE (21:00)
[2019-10-17] MEDS ORDERED: Solu-MEDROL 125mg Inj IVP ONE (21:00)
[2019-10-17] MEDS ORDERED: ATORVASTATIN CA80 MG ORAL (21:02)
[2019-10-17] MEDS ORDERED: PREDNISONE10 MG ORAL (21:02)
[2019-10-17] MEDS ORDERED: CARVEDILOL6.25 MG ORAL (21:02)
[2019-10-17] MEDS ORDERED: FOLIC ACID1 MG ORAL (21:02)
[2019-10-17] MEDS ORDERED: HYDROXYCHLOROQ200 M1 PO (21:02)
[2019-10-17] MEDS ORDERED: ASPIR 8181 MG ORAL (21:02)
[2019-10-17] MEDS ORDERED: PLAVIX75 MG ORAL (21:02)
[2019-10-17 21:15] VITALS: BP 103/66
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
== END 2019-10-17 21:15 | disposition home or self-care (01) ==
LOC: EMR 21:00
DX: Z76.0 Encounter for issue of repeat prescription (principal); M32.9 Systemic lupus erythematosus, unspecified; I12.9 Hypertensive chronic kidney disease with stage 1 through stage 4 chronic kidney disease, or unspecified chronic kidney disease; N18.9 Chronic kidney disease, unspecified; V43.52XA Car driver injured in collision with other type car in traffic accident, initial encounter; Y92.411 Interstate highway as the place of occurrence of the external cause; Z95.818 Presence of other cardiac implants and grafts
CPT/HCPCS: 96374; 96375; J1885; J2930; Z7502; 99284

== ENCOUNTER 2019-11-07 10:29 | Emergency (ER) | payer OTHER ==
[~2019-11-07] VITALS: Ht 180.3 cm; Wt 79.4 kg
[2019-11-07 11:05] VITALS: BP 103/68
[2019-11-07] MEDS ORDERED: ASPIR 8181 MG ORAL (11:05)
[2019-11-07] MEDS ORDERED: PREDNISONE10 MG ORAL (11:05)
[2019-11-07] MEDS ORDERED: ATORVASTATIN CA80 MG ORAL (11:05)
[2019-11-07] MEDS ORDERED: COREG3.125 MG ORAL (11:05)
[2019-11-07] MEDS ORDERED: PLAVIX75 MG ORAL (11:05)
[2019-11-07] MEDS ORDERED: MYCOPHENOLATE500 MG PO (11:05)
[2019-11-07] MEDS ORDERED: HYDROXYCHLOROQ200 M1 PO (11:05)
[2019-11-07 11:14] VITALS: BP 103/68
--- NOTE | 2019-11-07 11:46 | Emergency Room Report ---
History of Present Illness General Chief Complaint: Pain Source: Patient Present Illness HPI Is a 38-year-old male presented for medication refill. Patient had multiple prior visits for medication refills in the past. Previous history of lupus as well as glomerulonephritis. He states he has been unable to see primary care. Requesting medication refills of multiple medications. Denies any vomiting or fever. Reports having generalized body aches. Allergies: Coded Allergies: No Known Allergies (Unverified , 08/11/18) COVID-19 Screening Contact w/high risk pt: No Recent Travel to affected area: No Experienced COVID-19 symptoms?: No COVID-19 symptoms experienced: Fever (T>100.4F or >38C) COVID-19 Testing performed DELI CLERK: No Patient History Past Medical History: see triage record Reviewed Nursing Documentation: PMH: Agreed; PSxH: Agreed Nursing Documentation-PMH Past Medical History: No History, Except For Hx Cardiac Problems: Yes - hx of [place], kidney failure, rheumatoid arthritis, lupus Hx Hypertension: Yes Hx Pacemaker: No Hx Asthma: No Hx COPD: No Hx Diabetes: Yes - prediabetic Hx Cancer: No Hx Gastrointestinal Problems: No Hx Dialysis: No Hx Neurological Problems: No Hx Cerebrovascular Accident: No Hx Seizures: No Review of Systems All Other Systems: negative except mentioned in HPI Physical Exam Vital Signs Date Time Temp Pulse Resp B/P (MAP) Pulse Ox O2 Delivery O2 Flow Rate FiO2 11/07/19 10:35 98.8 73 20 103/68 (80) 98 Room Air General Appearance: well appearing, no apparent distress, alert, GCS 15 Head: normocephalic, atraumatic ENT: hearing grossly normal, normal voice Neck: full range of motion, supple Respiratory: no respiratory distress, speaking full sentences Cardiovascular #1: normal inspection Musculoskeletal: normal inspection, no calf tenderness Neurologic: alert, motor strength/tone normal, air defence officer III-XII nml as tested, oriented x3, normal gait Psychiatric: mood/affect normal Skin: other - bilateral malar rash Medical Decision Making Diagnostic Impression: Primary Impression: Medication refill ER Course Patient presented for medication refill. Differential diagnosis include was not limited to medication refill. Patient does not appear to have require any laboratory testing at this time. Patient was noted to be taking multiple medications due to SLE. Patient does not appear to be in any acute distress. Patient appears to be stable for close outpatient follow-up he was given prescription for his medications. He was advised to return if worse. This medical record is generated with [employer] food production machine operator software. There may be some food production machine operator discrepancies related to use of this software Last Vital Signs Date Time Temp Pulse Resp B/P (MAP) Pulse Ox O2 Delivery O2 Flow Rate FiO2 11/07/19 11:14 98.5 81 20 103/68 98 Room Air Status: improved Disposition: HOME, SELF-CARE Condition: Stable Scripts Clopidogrel Bisulfate* (PLAVIX*) 75 Mg Tablet 75 MG ORAL DAILY, #30 TAB Prov: William Santos MD 11/07/19 Aspirin* (ASPIR 81*) 81 Mg Tablet.dr 81 MG ORAL DAILY, #30 TAB Prov: William Santos MD 11/07/19 Atorvastatin Calcium* (LIPITOR*) 80 Mg Tablet 80 MG ORAL BEDTIME, #30 TAB Prov: William Santos MD 11/07/19 Carvedilol (Coreg) 3.125 Mg Tablet 3.125 MG ORAL EVERY 12 HOURS, #60 TAB Prov: William Santos MD 11/07/19 Mycophenolate Mofetil (MYCOPHENOLATE MOFETIL) 500 Mg Tablet 1000 MG PO BID, #60 TAB Prov: William Santos MD 11/07/19 Hydroxychloroquine Sulfate (HYDROXYCHLOROQUINE SULFATE) 200 Mg Tablet 200 MG PO DAILY, #60 TAB Prov: William Santos MD 11/07/19 Prednisone* (PREDNISONE*) 10 Mg Tablet 10 MG ORAL DAILY, #30 TAB 0 Refills Prov: William Santos MD 11/07/19 Referrals: NON PHYSICIAN (PCP) Patient Instructions: Medicine Refill at the Emergency Department William Santos MD Nov 07, 2019 11:46
== END 2019-11-07 11:14 | disposition home or self-care (01) ==
LOC: EMR 10:54
DX: Z76.0 Encounter for issue of repeat prescription (principal); M32.9 Systemic lupus erythematosus, unspecified; I10 Essential (primary) hypertension; I25.2 Old myocardial infarction; M06.9 Rheumatoid arthritis, unspecified
CPT/HCPCS: J7512; Z7502; 99282

== ENCOUNTER 2019-12-09 07:22 | Emergency (ER) | payer OTHER ==
[~2019-12-09] VITALS: Ht 180.3 cm; Wt 77.1 kg
[~2019-12-09 07:22] MED LIST changes: +COREG3.125 MG ORAL
[2019-12-09 07:39] VITALS: BP 113/70
[2019-12-09] MEDS ORDERED: MYCOPHENOLATE500 MG PO (07:59)
[2019-12-09] MEDS ORDERED: HYDROXYCHLOROQ200 M1 PO (07:59)
[2019-12-09] MEDS ORDERED: ASPIR 8181 MG ORAL (07:59)
[2019-12-09] MEDS ORDERED: PREDNISONE10 MG ORAL (07:59)
[2019-12-09 08:03] VITALS: BP 122/68
--- NOTE | 2019-12-09 08:09 | Emergency Room Report ---
History of Present Illness General Chief Complaint: Medication Refill Source: Patient Present Illness HPI Disclaimer: Please note that this report is being documented using [employer] technology. This can lead to erroneous entry secondary to incorrect interpretation by the dictating instrument. HPI: 39-year-old male history of lupus and glomerulonephritis presents for medication refill. Patient seen here in the emergency department multiple times for medication refills. Patient recently moved to [place] as his permanent residence but is not yet established insurance there. He returns to [place] for medication refills but no longer sees a PMD after a lapse of coverage following incarceration. He was requesting refills of prednisone, CellCept, aspirin. Reports diffuse joint pains but no new injury or limitation of range of motion. Denies fever, chills, vomiting, diarrhea, dysuria hematuria or other changes in his health. PMH: Lupus, CAD, hypertension, prediabetes, CKD PSH: Cardiac stents Allergies: Denies Social Hx: Denies tobacco use Allergies: Coded Allergies: No Known Allergies (Unverified , 08/11/18) COVID-19 Screening Contact w/high risk pt: No Recent Travel to affected area: No Experienced COVID-19 symptoms?: No COVID-19 symptoms experienced: Fever (T>100.4F or >38C) COVID-19 Testing performed CREDIT ANALYSIS MANAGER: No Nursing Documentation-PMH Past Medical History: No History, Except For Hx Cardiac Problems: Yes - hx of [place], kidney failure, rheumatoid arthritis, lupus Hx Hypertension: Yes Hx Pacemaker: No Hx Asthma: No Hx COPD: No Hx Diabetes: Yes - prediabetic Hx Cancer: No Hx Gastrointestinal Problems: No Hx Dialysis: No Hx Neurological Problems: No Hx Cerebrovascular Accident: No Hx Seizures: No Review of Systems All Other Systems: negative except mentioned in HPI Physical Exam Vital Signs Date Time Temp Pulse Resp B/P (MAP) Pulse Ox O2 Delivery O2 Flow Rate FiO2 12/09/19 07:39 99.0 83 20 113/70 (84) 99 Room Air General: Awake and alert, no acute distress HEENT: NC/AT. EOMI. Resp: Normal work of breathing Skin: Intact. No abrasions, laceration or rash over the exposed skin MSK: Normal tone and bulk. Moving all extremities. No obvious deformity. Ambulating without difficulty. Neuro: Awake and alert. Mentating appropriately Medical Decision Making Diagnostic Impression: Primary Impression: Encounter for medication refill ER Course 39-year-old male history of SLE presents for evaluation of medication refill. No acute distress or changes in his baseline health. We will refill his medications though strongly encouraged him to establish his insurance and PMD coverage in [place] where as he is now residing. No indication for emergent labs or imaging at this time. Well-appearing with stable vital signs and no complaints. Advised to return to emergency department with any changes in his health Last Vital Signs Date Time Temp Pulse Resp B/P (MAP) Pulse Ox O2 Delivery O2 Flow Rate FiO2 12/09/19 08:03 98.8 77 16 122/68 100 Room Air Disposition: HOME, SELF-CARE Condition: Stable Scripts Mycophenolate Mofetil (MYCOPHENOLATE MOFETIL) 500 Mg Tablet 1000 MG PO BID, #60 TAB Prov: Bobby Cedeno MD 12/09/19 Hydroxychloroquine Sulfate (HYDROXYCHLOROQUINE SULFATE) 200 Mg Tablet 200 MG PO DAILY, #30 TAB Prov: Bobby Cedeno MD 12/09/19 Prednisone* (PREDNISONE*) 10 Mg Tablet 10 MG ORAL DAILY, #30 TAB 0 Refills Prov: Bobby Cedeno MD 12/09/19 Aspirin* (ASPIR 81*) 81 Mg Tablet.dr 81 MG ORAL DAILY for 30 Days, #30 TAB Prov: Bobby Cedeno MD 12/09/19 Referrals: NON PHYSICIAN (PCP) Patient Instructions: Medicine Refill at the Emergency Department Additional Instructions: Please follow-up with your primary care doctor in the next 1 to 3 days to discuss this emergency department visit and for reevaluation. If you have any new or worsening symptoms please return to the emergency department for reevaluation. Please note that this report is being documented using [employer] technology. This can lead to erroneous entry secondary to incorrect interpretation by the dictating instrument. Bobby Cedeno MD Dec 09, 2019 08:09
== END 2019-12-09 08:03 | disposition home or self-care (01) ==
LOC: EMR 08:00
DX: Z76.0 Encounter for issue of repeat prescription (principal); I25.10 Atherosclerotic heart disease of native coronary artery without angina pectoris; I12.9 Hypertensive chronic kidney disease with stage 1 through stage 4 chronic kidney disease, or unspecified chronic kidney disease; N18.9 Chronic kidney disease, unspecified; R73.03 Prediabetes; Z95.5 Presence of coronary angioplasty implant and graft; I25.2 Old myocardial infarction; M06.9 Rheumatoid arthritis, unspecified
CPT/HCPCS: 99282

== ENCOUNTER 2019-12-19 22:50 | Inpatient (IN) | payer OTHER ==
[~2019-12-19] VITALS: Ht 182.9 cm; Wt 78.5 kg
[2019-12-19 23:00] VITALS: BP 105/69
--- NOTE | 2019-12-19 23:00 | NUR ---
ED Nurse Note: Patient walked into ED c/o left sided chest pain onset 2 hours ago prior to arrival, rates his pain a 8/10 pain radiating to his left shoulder, states that happened while driving. patient felt sudden onset of pain then took 81mg of aspirin. patient is alert and oriented x4, reports of past history of 2 heart attacks with a stent placed on his LAD. patient placed in a court recording monitor, IV started on right AC 20gauge. will wait for further orders
--- NOTE | 2019-12-19 23:08 | Emergency Room Report ---
History of Present Illness General Chief Complaint: Chest Pain Source: Patient, Medical Record Present Illness HPI This a 39-year-old male with a history of lupus and glomerulonephritis. He was taking Plaquenil, prednisone, CellCept and aspirin. He has been here numerous times for refills on his medication. He also said he has a history of 2 previous heart attacks and has a stent in his LAD. He presents with complaint of chest pain. Onset was 2 hours ago while he was driving. Pain to the left chest radiating to his left shoulder. No nausea no vomiting. No diaphoresis. No exertional component. Pain is 8 out of 10. He also complained of generalized joint pain which is unchanged from before. He took one baby aspirin. Allergies: Coded Allergies: No Known Allergies (Unverified , 08/11/18) COVID-19 Screening Contact w/high risk pt: No Recent Travel to affected area: No Experienced COVID-19 symptoms?: No COVID-19 symptoms experienced: Fever (T>100.4F or >38C) COVID-19 Testing performed ROLLER CLEANER: No Patient History Past Medical History: see triage record, old chart reviewed Past Surgical History: other Pertinent Family History: none Social History: Denies: smoking Immunizations: other Reviewed Nursing Documentation: PMH: Agreed; PSxH: Agreed Nursing Documentation-PMH Hx Cardiac Problems: Yes - hx of [place], kidney failure, rheumatoid arthritis, lupus Hx Hypertension: Yes Hx Pacemaker: No Hx Asthma: No Hx COPD: No Hx Diabetes: Yes - prediabetic Hx Cancer: No Hx Gastrointestinal Problems: No Hx Dialysis: No Hx Neurological Problems: No Hx Cerebrovascular Accident: No Hx Seizures: No Review of Systems Eye: Denies: eye pain, blurred vision ENT: Denies: ear pain, nose congestion, throat swelling Respiratory: Denies: cough, shortness of breath Cardiovascular: Reports: chest pain; Denies: palpitations Gastrointestinal: Denies: abdominal pain, diarrhea, nausea, vomiting Musculoskeletal: Denies: back pain, joint pain Skin: Denies: rash Neurological: Denies: headache, numbness Endocrine: Denies: increased thirst, increased urine Hematologic/Lymphatic: Denies: easy bruising All Other Systems: negative except mentioned in HPI Physical Exam Vital Signs Date Time Temp Pulse Resp B/P (MAP) Pulse Ox O2 Delivery O2 Flow Rate FiO2 12/19/19 22:57 98.8 100 17 105/69 (81) 98 Room Air Vitals normal Sp02 EP Interpretation: reviewed, normal General Appearance: well appearing, no apparent distress, alert Head: normocephalic, atraumatic Eyes: bilateral eye PERRL, bilateral eye EOMI ENT: hearing grossly normal, normal pharynx Neck: full range of motion, supple, no meningismus Respiratory: chest non-tender, lungs clear, normal breath sounds Cardiovascular #1: regular rate, rhythm, no murmur Gastrointestinal: normal bowel sounds, non tender, no mass, no organomegaly, no bruit, non-distended Musculoskeletal: back normal, normal range of motion, gait/station normal Psychiatric: mood/affect normal Medical Decision Making Diagnostic Impression: Primary Impression: ACS (acute coronary syndrome) Additional Impression: BRIGHT (acute kidney injury) ER Course Patient presents with chest pain. He stated that he had 2 previous OR he has a stent. EKG unremarkable. Troponin negative. Because of his risk factors, will admit for further work-up. I contacted Dr. Busby for admission. EKG Diagnostic Results Rate: normal Rhythm: NSR ST Segments: no acute changes ASA given to the pt in ED: Yes Rhythm Strip Diag. Results EP Interpretation: yes Rate: 92 Rhythm: NSR, no PVC's, no ectopy Chest X-Ray Diagnostic Results Chest X-Ray Diagnostic Results : Chest X-Ray Ordered: Yes # of Views/Limited/Complete: 1 View Indication: Chest Pain EP Interpretation: Yes Interpretation: no consolidation, no effusion, no pneumothorax, no acute cardiopulmonary disease Impression: No acute disease Electronically Signed by: Antonio Gu MD Last Vital Signs Date Time Temp Pulse Resp B/P (MAP) Pulse Ox O2 Delivery O2 Flow Rate FiO2 12/19/19 22:57 98.8 100 17 105/69 (81) 98 Room Air Status: improved Disposition: ADMITTED INPATIENT Condition: Serious Referrals: NON PHYSICIAN (PCP) Antonio Gu MD Dec 19, 2019 23:08
[2019-12-19] MEDS ORDERED: Nitroglycerin Subl 0.4mg tab SL PRN (23:15)
[2019-12-19] MEDS ORDERED: Aspirin Baby 81mg ORAL ONE (23:15)
[2019-12-19 23:17] LABS: BASOPHILS % (AUTO) 0.7 % (0.0-2.0); EOSINOPHILS % (AUTO) 0.2 % (0.0-3.0); HEMATOCRIT 37.8 % (42.0-52.0); HEMOGLOBIN 12.6 G/DL (14.2-18.0); LYMPHOCYTES % (AUTO) 33.1 % (20.0-45.0); MEAN CORPUSCULAR VOLUME 85 FL (80-99); MONOCYTES % (AUTO) 13.7 % (1.0-10.0); NEUTROPHILS % (AUTO) 52.4 % (45.0-75.0); PLATELET COUNT 175 K/UL (150-450); RED BLOOD COUNT 4.43 M/UL (4.70-6.10); RED CELL DISTRIBUTION WIDTH 12.7 % (11.6-14.8); WHITE BLOOD COUNT 5.2 K/UL (4.8-10.8)
--- NOTE | 2019-12-19 23:18 | NUR ---
ED Nurse Note: Reassesed patient's chest pain, pt reports 7/10 chest pain, declining second dose of nitroglycerin at this time.
[2019-12-19 23:29] LABS: ANION GAP 9 mmol/L (5-15); BLOOD UREA NITROGEN 15 mg/dL (7-18); CALCIUM 8.9 MG/DL (8.5-10.1); CARBON DIOXIDE 26 MMOL/L (21-32); CHLORIDE 102 MMOL/L (98-107); CREATININE 1.6 MG/DL (0.55-1.30); POTASSIUM 3.8 MMOL/L (3.5-5.1); SODIUM 137 MMOL/L (136-145)
[2019-12-19 23:35] LABS: ALANINE AMINOTRANSFERASE 12 U/L (12-78); ALBUMIN 3.6 G/DL (3.4-5.0); ALBUMIN/GLOBULIN RATIO 0.9 (1.0-2.7); ALKALINE PHOSPHATASE 57 U/L (46-116); ASPARTATE AMINO TRANSFERASE 12 U/L (15-37); BILIRUBIN,TOTAL 0.2 MG/DL (0.2-1.0)
[2019-12-19 23:36] LABS: APPEARANCE,URINE CLEAR; BILIRUBIN, URINE NEGATIVE (NEGATIVE); COLOR,URINE PALE YELLOW; GLUCOSE, URINE (UA) NEGATIVE (NEGATIVE); KETONES,URINE NEGATIVE (NEGATIVE); LEUKOCYTE ESTERASE ,URINE NEGATIVE (NEGATIVE); NITRITE,URINE NEGATIVE (NEGATIVE); PH,URINE 6 (4.5-8.0); PROTEIN,URINE NEGATIVE (NEGATIVE); UROBILINOGEN,URINE NORMAL MG/DL (0.0-1.0)
--- NOTE | 2019-12-19 23:45 | NUR ---
ED Nurse Note: Xray at bedside
--- NOTE | 2019-12-20 00:34 | NUR ---
ED Nurse Note: Patient sleeping in bed, no pain noted during reassessment.
--- NOTE | 2019-12-20 00:50 | NUR ---
ED Nurse Note: Report given to KEVON Morris.
--- NOTE | 2019-12-20 00:55 | NUR ---
TRANSFER TO FLOOR: Patient transferred to telemetry as ordered, per ERMD. Report given to KEVON Morris. Patient transported via gurney on ACLS protocol on track greaser in stable condition accompanied by HUSSEIN patten and RN.
--- NOTE | 2019-12-20 01:00 | NUR ---
NURSE NOTES: Sg RN from ED transferred patient via gurney to room 220-2 without any incidents noted. residential monitor in place, vital signs: BP: 107/59, SpO2: 98%,T: 97.7, RR: 16, HR: 79, patient alert and oriented x4, breathing is even and unlabored, BGL 99, bilateral lower extremities 5/5 strength, skin intact except for dispersed lupus markings throughout body, no DTI or pressure ulcers present.
--- NOTE | 2019-12-20 01:00 | NUR ---
NURSE NOTES: Notified Dr. Busby and he gave the following orders: troponin and EKG in the morning and cardiac diet. When asked about pain medications for the patient and DVT prophylaxis, Dr. Busby gave no new orders at this time.
--- NOTE | 2019-12-20 01:05 | NUR ---
NURSE NOTES: When asked about chest pain, patient stated, "pain is 5/10 and radiating to my left shoulder." Asked if pain is tolerable and if he wanted to take medications for it right now and he stated, "Not at this time. Pain is tolerable."
[2019-12-20 04:00] VITALS: BP 111/70
--- NOTE | 2019-12-20 04:48 | NUR ---
NURSE NOTES: Called Dr. Busby regarding patient rheumatoid arthritic pain, patient denies chest pain / radiating pain at this time. Addendum: 12/20/19 at 0450 by Edgard Christina RN Left a voicemail and awaiting Dr. Busby's response / orders.
--- NOTE | 2019-12-20 04:50 | NUR ---
NURSE NOTES: EKG performed and placed in patient chart; shows NSR with anterolateral infarct.
--- NOTE | 2019-12-20 07:07 | NUR ---
NURSE HAND-OFF REPORT: Important Events on Shift: Endorsed the butterfly rashes scattered throughout arms, face and legs, need for DVT prophylaxis, and chest pain radiating that was present upon admission but is no longer present at the moment. Patient Status: stable, full code Diet: Cardiac Pending Orders: Pending Results/Labs: Pending MD notification: Latest Vital Signs: Temperature 98.1 , Pulse 69 , B/P 111 /70 , Respiratory Rate 16 , O2 SAT 100 , Room Air, O2 Flow Rate . Vital Sign Comment: EKG Rhythm: Sinus Rhythm Rhythm change?: N MD Notified?: N -Dr. Kehinde HARRIS Response: Latest Dior Fall Score: 25 Fall Risk: Medium Risk Safety Measures: Call light Within Reach, Bed Alarm Zone 2, Side Rails Side Rails x2, Bed position Low and Locked. Fall Precautions: Yellow Socks Yellow Gown Patient Fall Education Report given to .
--- NOTE | 2019-12-20 07:30 | NUR ---
NURSE NOTES: Pt awake/alert in bed, breathing easily on room air, denies SOB and denies pain at this time. Vital signs stable with SR @ 74 on monitor. Bed left in low position, side rails up x 2 and call light left near pt's hand.
--- NOTE | 2019-12-20 08:15 | NUR ---
NURSE NOTES: heard overhead page from CN, informed that pt had eloped. Monitor found in pt's room, all belongings gone. Security informed that pt was in parking lot. Pt found, fully dressed, initially stated that he wanted something from his car. When walking back towards [facility], pt stated that he wanted to sign out AMA. I asked pt if he still had the IV in place, he stated that "I took care of it." Walking into [facility] I asked pt to see his elbows. Upon removing his jacket it was discovered that the IV access was still in place. While removing IV access pt stated that "I was going to take care of it." Pt was informed that he should return to ER if chest pain returned. Pt signed AMA and proceeded to walk out of hospital with all his belongings.
[2019-12-20] MEDS ORDERED: Albuterol/Ipratropium 3ml neb HHN PRN (08:30)
[2019-12-20] MEDS ORDERED: Enalaprilat 2.5mg/2ml Inj IV PRN (08:30)
[2019-12-20] MEDS ORDERED: Miralax 17gm pkt ORAL PRN (08:30)
[2019-12-20] MEDS ORDERED: dilTIAZem HCl 25mg/5ml Inj IV PRN (08:30)
[2019-12-20] MEDS ORDERED: Nitroglycerin Subl 0.4mg tab SL PRN (08:30)
[2019-12-20] MEDS ORDERED: Aspirin Baby 81mg ORAL SCH (09:00)
[2019-12-20] MEDS ORDERED: Heparin 5000 units/ml inj SUBQ SCH (09:00)
--- NOTE | 2019-12-20 11:12 | Diagnostic Imaging Report ---
Procedure: XRAY Chest 1v Reason for study: Chest pain Comparison films: 07/23/2019. FINDINGS: A single one view chest is obtained. Vascularity is normal. The lung boyd are clear bilaterally. Cardiac and mediastinal silhouette are within normal limits. CP angles are sharp. The bony thorax appear unremarkable. IMPRESSION: NO ACUTE CARDIOPULMONARY DISEASE.
--- NOTE | 2019-12-20 14:42 | NUR ---
CASE MANAGEMENT:REVIEW 39 YR OLD MALE WALKED INTO ER CC: CHEST PAIN PMH: STENTS X2. AMI X2 SI: ACS 98.7 100 17 105/69 98% ON RA H/H-12.6/37.8 CR+1.6 GLUCOSE+108 TROPONIN(-) IS: ASA PO NITRO SL CHEST XRAY : TO TELEMETRY UNIT 12/20/19 SIGNED OUT AMA
--- NOTE | 2019-12-20 14:49 | NUR ---
INSURANCE CLINICALS AND REVIEW FAXED TO''MIGUEL MCCURDY T: [phone] F: [phone] REF#[id number]
--- NOTE | 2019-12-20 19:51 | History & Physical ---
History and Physical History & Physicial patient signed AMA prior to my visit, MD Kehinde Carias Payam MD Dec 20, 2019 19:51
--- NOTE | 2019-12-22 13:15 | Discharge Summary ---
Discharge Summary Discharge Summary _ DATE OF ADMISSION: 12/20/2019 DATE OF DISCHARGE: 12/20/2019 BRIEF HOSPITAL COURSE: Patient is a 39-year-old male, with history of lupus and glomerulonephritis. He was taking Plaquenil, prednisone, CellCept and aspirin. He has history of 2 previous heart attacks and a stent in his LAD. He presented with complaints of chest pain that started 2 weeks prior to arrival while he was driving. Pain was located to the left chest, radiating to the left shoulder. There was no nausea, no vomiting, no diaphoresis, no exertional component. Pain is 8 out of 10. He complained of generalized joint pain which has been unchanged from before. He already took one baby aspirin. Upon evaluation at ED vital signs were stable. Creatinine was elevated to 16. EKG was unremarkable. Troponin was negative. Due to his risk factors, patient was admitted for further work-up. He was admitted to medical floor. Admission orders were given. Patient left AGAINST MEDICAL ADVICE. FINAL DIAGNOSES: Acute coronary syndrome Acute kidney injury DISPOSITION: Patient left AMA. I have been assigned to complete a discharge summary on this account, I was not involved with the patient's management.--YESSI Tolliver Jacqueline Robles NP Dec 22, 2019 13:15
== END 2019-12-20 08:25 | disposition left against medical advice (07) | DRG 198 ==
LOC: EMR 23:03 → 2E 23:30 → EDBEDREQ 12-20 00:34 → OBSVTOIN 12-20 00:34 → EDBEDREQ 12-20 00:40
DX: I24.9 Acute ischemic heart disease, unspecified (principal); N17.9 Acute kidney failure, unspecified; M32.9 Systemic lupus erythematosus, unspecified; Z79.82 Long term (current) use of aspirin; I25.2 Old myocardial infarction; I25.10 Atherosclerotic heart disease of native coronary artery without angina pectoris; Z95.5 Presence of coronary angioplasty implant and graft; M06.9 Rheumatoid arthritis, unspecified
CPT/HCPCS: 36415; 71045; 80053; 80307; 81003; 84484; 85025; 93005; 99285

== ENCOUNTER 2020-01-23 17:23 | Emergency (ER) | payer OTHER ==
[~2020-01-23] VITALS: Ht 180.3 cm; Wt 78.5 kg
[2020-01-23 17:39] VITALS: BP 112/68
--- NOTE | 2020-01-23 17:57 | Emergency Room Report ---
History of Present Illness General Chief Complaint: Medication Refill Source: Patient Present Illness HPI 39-year-old male presents to the emergency department with request of medication refill. Patient reports history of lupus, hypertension, 2 MIs with stent placement and requires medication refill. Patient states he is in the process of moving and he does not have a PMD. He denies chest pain, shortness of breath, headache, dizziness, nausea or vomiting. Denies any medical symptoms at this time and is requesting only refill of his medications: 10 mg prednisone once daily, 75 mg Plavix once daily, 5 mg lisinopril once daily, 6.25 mg of Coreg twice a day, 80 mg of Lipitor at dinner, CellCept 1000 mg twice a day, folic acid 1 mg once daily, Zofran 4 mg as needed, 81 mg of aspirin daily. Allergies: Coded Allergies: No Known Allergies (Unverified , 08/11/18) COVID-19 Screening Contact w/high risk pt: No Recent Travel to affected area: No Experienced COVID-19 symptoms?: No COVID-19 symptoms experienced: Fever (T>100.4F or >38C) COVID-19 Testing performed POWER BARKER: No Patient History Past Medical History: see triage record Past Surgical History: none Pertinent Family History: none Reviewed Nursing Documentation: PMH: Agreed; PSxH: Agreed Nursing Documentation-PMH Past Medical History: No History, Except For Hx Cardiac Problems: Yes - lupus Hx Hypertension: Yes Hx Pacemaker: No Hx Asthma: No Hx COPD: No Hx Diabetes: Yes - Prediabetes Hx Cancer: No Hx Gastrointestinal Problems: No Hx Dialysis: No Hx Neurological Problems: No Hx Cerebrovascular Accident: No Hx Seizures: No Review of Systems All Other Systems: negative except mentioned in HPI Physical Exam Vital Signs Date Time Temp Pulse Resp B/P (MAP) Pulse Ox O2 Delivery O2 Flow Rate FiO2 01/23/20 17:29 97.2 79 17 100/60 (73) 99 Room Air Sp02 EP Interpretation: reviewed, normal General Appearance: no apparent distress, alert, GCS 15, non-toxic Head: normocephalic, atraumatic Eyes: bilateral eye normal inspection, bilateral eye PERRL ENT: hearing grossly normal, normal voice Neck: full range of motion Respiratory: lungs clear, normal breath sounds, speaking full sentences Cardiovascular #1: regular rate, rhythm Musculoskeletal: normal range of motion, gait/station normal, non-tender Neurologic: alert, motor strength/tone normal, oriented x3, sensory intact, responsive, speech normal Psychiatric: judgement/insight normal Skin: no rash, normal color Medical Decision Making PA Attestation Dr. Cedeno is my supervising Physician whom patient management has been discussed with. Diagnostic Impression: Primary Impression: Medication refill Additional Impression: Medically noncompliant ER Course Habitually noncompliant 39-year-old male presents to the ED c/o needing refills of his medications that he takes regularly for chronic conditions and is not properly managed by the appropriate specialist prescribing him. He denies pain at this time. Patient was just discharged from the hospital 3 days ago. Ddx considered but are not limited to: drug seeking, OD, high blood pressure, treatment plan noncompliance Vital signs: are WNL, pt. is afebrile H&PE are most consistent with need for medication refill. -Patient is nontoxic in appearance and in no acute distress. ORDERS: none required at this time, the diagnosis is clinical ED INTERVENTIONS: None required at this time. D/w pt. need to have PMD, He has an extensive pmhx and should be concerned enough to be seen by a landscape manager and financial foundations representative letter with a primary care doctor. Discussed with patient that in an attempt to encourage proper follow-up I will be prescribing him 2 weeks worth of medication refill and he is given multiple primary care clinic information. D/w pt. that emergency departme nt visit should not be used to replace regular and routine primary care and specialty evaluations and follow-up. Discussed with patient that he is putting himself at significant risk of worsening of his chronic conditions, permanent disability or even by not having proper follow-up and using the emergency department regularly for medication refill. DISCHARGE: At this time pt. is stable for d/c to home. Will provide printed patient care instructions, and any necessary prescriptions. Care plan and follow up instructions have been discussed with the patient prior to discharge. Last Vital Signs Date Time Temp Pulse Resp B/P (MAP) Pulse Ox O2 Delivery O2 Flow Rate FiO2 01/23/20 17:39 97.5 75 18 112/68 98 Room Air Disposition: HOME, SELF-CARE Condition: Stable Scripts Aspirin (Aspirin) 81 Mg Tab.chew 81 MG PO DAILY for 1 Day, #14 TAB Prov: Altagracia Dempsey 01/23/20 Ondansetron* (ZOFRAN*) 4 Mg Tablet 4 MG ORAL Q6H PRN for Nausea & Vomiting, #6 TAB Prov: Altagracia Dempsey 01/23/20 Folic Acid* (FOLIC ACID*) 1 Mg Tablet 1 MG ORAL DAILY for 14 Days, #14 TAB Prov: Atlagracia Dempsey 01/23/20 Mycophenolate Mofetil (CELLCEPT) 500 Mg Tablet 1000 MG ORAL EVERY 12 HOURS for 14 Days, #28 TAB Prov: Altagracia Dempsey 01/23/20 Atorvastatin Calcium* (LIPITOR*) 80 Mg Tablet 80 MG ORAL BEDTIME for 14 Days, #14 TAB Prov: Altagracia Dempsey 01/23/20 Lisinopril (LISINOPRIL*) 5 Mg Tablet 5 MG ORAL DAILY for 14 Days, #14 TAB Prov: Altagracia Dempsey 01/23/20 Clopidogrel Bisulfate* (PLAVIX*) 75 Mg Tablet 75 MG ORAL DAILY for 14 Days, #28 TAB Prov: Altagracia Dempsey 01/23/20 Prednisone* (PREDNISONE*) 10 Mg Tablet 10 MG ORAL DAILY, #14 TAB 0 Refills Prov: Altagracia Dempsey 01/23/20 Carvedilol (Coreg) 6.25 Mg Tablet 6.25 MG ORAL EVERY 12 HOURS for 14 Days, #30 TAB Prov: Altagracia Dempsey 01/23/20 Referrals: Khoi Olsen [facility]. [facility] Patient Instructions: Medicine Refill at the Emergency Department Additional Instructions: NON-COMPLIANCE WITH MEDICAL CARE- FAILURE TO PROPERLY FOLLOW UP WITH A PMD, DIE MACHINE OPERATOR, AND INDUSTRIAL GAS FITTER HELPER. REPEAT VISITS FOR MEDICATION REFILLS. -Take medications as directed. Follow up with a Primary Care Provider in 3-5 days, even if your symptoms have resolved. --Please review list of primary care clinics, if you do not already have a primary care provider Return sooner to ED if new symptoms occur, or current symptoms become worse. - Please note that this Emergency Department Report was dictated using [employer] host technology software, occasionally this can lead to erroneous entry secondary to interpretation by the dictation equipment. Altagracia Dempsey Jan 23, 2020 17:57
[2020-01-23] MEDS ORDERED: PREDNISONE10 MG ORAL (18:02)
[2020-01-23] MEDS ORDERED: PLAVIX75 MG ORAL (18:02)
[2020-01-23] MEDS ORDERED: FOLIC ACID1 MG ORAL (18:02)
[2020-01-23] MEDS ORDERED: ATORVASTATIN CA80 MG ORAL (18:02)
[2020-01-23] MEDS ORDERED: COREG6.25 MG ORAL (18:02)
[2020-01-23] MEDS ORDERED: ZOFRAN4 M3 ORAL (18:02)
[2020-01-23] MEDS ORDERED: ASPIRIN81 M3 PO (18:02)
[2020-01-23] MEDS ORDERED: LISINOPRIL5 MG ORAL (18:02)
[2020-01-23] MEDS ORDERED: CELLCEPT500 MG ORAL (18:02)
[2020-01-23 18:13] VITALS: BP 120/70
== END 2020-01-23 18:13 | disposition home or self-care (01) ==
LOC: EMR 18:03
DX: Z76.0 Encounter for issue of repeat prescription (principal); Z91.14 Patient's other noncompliance with medication regimen; I25.2 Old myocardial infarction; I10 Essential (primary) hypertension; R73.03 Prediabetes
CPT/HCPCS: 99282